=== PATIENT | male | born 1945 | race Caucasian/White ===

== ENCOUNTER → 2020-10-22 08:43 | Outpatient (BNVA) | payer OTHER, SELFPAY | PROVIDERS: PCP Physician Assistant Medical; Visit Provider Orthopaedic Surgery | DX: M79.642 Pain in left hand (principal); R20.0 Anesthesia of skin; R20.2 Paresthesia of skin | CPT/HCPCS: 99202 ==

== ENCOUNTER 2020-11-15 08:23 | Outpatient (REF) | payer OTHER, SELFPAY ==
--- NOTE | 2020-11-15 08:31 | EMG_ITS ---
Bilateral median and ulnar motor and sensory studies were performed. Bilateral radial sensory studies were performed and paraspinal muscles were tested. IMPRESSION: 1. Severe almost end-stage right, and [id number] left, median neuropathy across carpal tunnel. 2. Mild bilateral ulnar neuropathy across cubital tunnel. MD EMMETT Forbes/DALILA / [phone]
== END 2020-11-15 08:24 | disposition home or self-care (01) ==
LOC: HO.NEURO 08:23
PROVIDERS: PCP Physician Assistant Medical; Visit Provider Orthopaedic Surgery
DX: R20.0 Anesthesia of skin (principal); R20.2 Paresthesia of skin
CPT/HCPCS: 95886; 95911

== ENCOUNTER → 2020-11-22 08:39 | Outpatient (BNVA) | payer OTHER, SELFPAY | PROVIDERS: PCP Physician Assistant Medical; Visit Provider Orthopaedic Surgery | DX: G56.03 Carpal tunnel syndrome, bilateral upper limbs (principal) | CPT/HCPCS: 99212 ==

== ENCOUNTER 2020-12-18 12:31 | Day surgery (SDC) | payer OTHER, SELFPAY ==
[2020-12-18 12:46] VITALS: BMI 27.1
[2020-12-18 12:53] VITALS: BP 156/76; PULSE 84; RESP 16; TEMP 36.9; O2SAT 97
--- NOTE | 2020-12-18 15:18 | MHC.SHP ---
Pre-Procedural Eval Section B Chief Complaint: carpal tunnel Allergies: Allergies Allergy/AdvReac Type Severity Reaction Status Date / Time lisinopril Allergy Unknown Verified 12/26/19 00:00 Plan I have reviewed the history and physical and performed a pertinent physical examination on my patient. No changes have occurred unless specified.
--- NOTE | 2020-12-18 15:19 | W.PM.OPN ---
Operative Note Operative Note Date of Service: 12/18/20 Narrative: Preop diagnosis: 1. right Carpal tunnel syndrome Postop diagnosis: 1. Right Carpal tunnel syndrome Procedure: 1. Right Carpal tunnel release Surgeon: Bethanie Lewis MD Anesthesia: local block using 1% lidocaine with epinephrine Findings: Thickened transverse carpal ligament. EBL: Less than 5 mL Specimens: None Complications: None Disposition: Brought to recovery room in stable condition Plan: Follow-up for 7-10 days for wound check and suture removal Indications: The patient is 75 years old, with Right carpal tunnel syndrome that has been unresponsive to nonoperative management. The risks and benefits of operative treatment including but not limited to risk of damage to blood vessels, nerves, tendons, infection, persistent pain, persistent symptoms, or possible need for additional surgery were discussed with the patient and the patient wishes to proceed with surgery. Procedure: Once consent was obtained a local block was performed using a combination of 1% lidocaine with epinephrine. The patient was then brought back to the operating suite and placed on the operative table in supine position. A tourniquet was applied to the proximal aspect of the right upper extremity and the limb was prepped and draped in a standard surgical fashion. Once assured that we had a good block, a 1.5 cm longitudinal incision was made centered over the right carpal tunnel. The incision was made through the skin to the subcutaneous tissues using a #15 blade. Dissection was made down to the level of the transverse carpal ligament with care being taken to protect the palmar cutaneous nerve. Once the transverse carpal ligament was clearly visualized, a longitudinal incision was made in the transverse carpal ligament 1st using a #15 blade, then using tenotomy scissors under direct visualization. Care was taken to look for and protect the motor branch of the median nerve when seen in this area. Once satisfied with our carpal tunnel release the wound was copiously irrigated with normal saline and hemostasis was obtained with a brief period of local pressure. The skin edges were reapproximated with some 5.0 nylon suture material and a sterile dressing was applied. The patient appears to have tolerated the procedure well and with no complications. All digits were well vascularized at the conclusion of the case.
[2020-12-18 16:15] VITALS: BP 158/84; PULSE 94; RESP 20; TEMP 36.8; O2SAT 97
== END 2020-12-18 16:30 | disposition home or self-care (01) ==
PROVIDERS: PCP Physician Assistant Medical; Visit Provider Orthopaedic Surgery
PROC: (CPT 64721; principal; 2020-12-18 14:20)
DX: G56.01 Carpal tunnel syndrome, right upper limb (principal); I10 Essential (primary) hypertension; Z85.46 Personal history of malignant neoplasm of prostate; Z85.828 Personal history of other malignant neoplasm of skin; G47.30 Sleep apnea, unspecified; Z79.899 Other long term (current) drug therapy; Z88.8 Allergy status to other drugs, medicaments and biological substances
CPT/HCPCS: 64721

== ENCOUNTER → 2020-12-26 09:38 | Outpatient (BNVA) | payer OTHER, SELFPAY | PROVIDERS: Visit Provider Orthopaedic Surgery | DX: G56.01 Carpal tunnel syndrome, right upper limb (principal); M79.642 Pain in left hand | CPT/HCPCS: 99212 ==

== ENCOUNTER 2021-07-08 08:16 | Outpatient (REF) | payer OTHER, SELFPAY ==
--- NOTE | ~2021-07-08 | XR_ITS ---
EXAMINATION: XR BOTH KNEES AP STANDING XR RIGHT KNEE, 2 VIEWS XR LEFT KNEE, 2 VIEWS CLINICAL INFORMATION: Pain. COMPARISON: None. TECHNIQUE: Standing AP view of both knees and lateral and sunrise views of the right and left knee. FINDINGS: Right knee: Njgsdskd-[id number] medial compartment joint space narrowing with mild subchondral sclerosis. Tricompartmental marginal osteophytes. No osseous erosion. No fracture or dislocation. No significant joint effusion. No abnormal soft tissue calcification. Left knee: Moderate medial compartment joint space narrowing. Tricompartmental marginal osteophytes. No osseous erosion. No fracture or dislocation. No significant joint effusion. No abnormal soft tissue calcification. XR/XR knee RT 2V IMPRESSION: RIGHT KNEE: Severe medial as well as more mild patellofemoral and lateral compartment osteoarthritis. LEFT KNEE: Moderate medial as well as more mild patellofemoral and lateral compartment osteoarthritis.
--- NOTE | ~2021-07-08 | XR_ITS ---
EXAMINATION: XR BOTH KNEES AP STANDING XR RIGHT KNEE, 2 VIEWS XR LEFT KNEE, 2 VIEWS CLINICAL INFORMATION: Pain. COMPARISON: None. TECHNIQUE: Standing AP view of both knees and lateral and sunrise views of the right and left knee. FINDINGS: Right knee: Hfyuxefu-cp-fgwfew medial compartment joint space narrowing with mild subchondral sclerosis. Tricompartmental marginal osteophytes. No osseous erosion. No fracture or dislocation. No significant joint effusion. No abnormal soft tissue calcification. Left knee: Moderate medial compartment joint space narrowing. Tricompartmental marginal osteophytes. No osseous erosion. No fracture or dislocation. No significant joint effusion. No abnormal soft tissue calcification. XR/XR knee standing BI IMPRESSION: RIGHT KNEE: Severe medial as well as more mild patellofemoral and lateral compartment osteoarthritis. LEFT KNEE: Moderate medial as well as more mild patellofemoral and lateral compartment osteoarthritis.
--- NOTE | ~2021-07-08 | XR_ITS ---
EXAMINATION: XR BOTH KNEES AP STANDING XR RIGHT KNEE, 2 VIEWS XR LEFT KNEE, 2 VIEWS CLINICAL INFORMATION: Pain. COMPARISON: None. TECHNIQUE: Standing AP view of both knees and lateral and sunrise views of the right and left knee. FINDINGS: Right knee: Agijgkew-nh-omoope medial compartment joint space narrowing with mild subchondral sclerosis. Tricompartmental marginal osteophytes. No osseous erosion. No fracture or dislocation. No significant joint effusion. No abnormal soft tissue calcification. Left knee: Moderate medial compartment joint space narrowing. Tricompartmental marginal osteophytes. No osseous erosion. No fracture or dislocation. No significant joint effusion. No abnormal soft tissue calcification. XR/XR knee LT 2V IMPRESSION: RIGHT KNEE: Severe medial as well as more mild patellofemoral and lateral compartment osteoarthritis. LEFT KNEE: Moderate medial as well as more mild patellofemoral and lateral compartment osteoarthritis.
== END 2021-07-08 08:17 | disposition home or self-care (01) ==
LOC: HO.HOSX 08:16
PROVIDERS: Visit Provider Orthopaedic Surgery
DX: M17.0 Bilateral primary osteoarthritis of knee (principal)
CPT/HCPCS: 20610; 73560; 73565; 99202; J1100

== ENCOUNTER → 2021-10-17 08:12 | Outpatient (BNVA) | payer OTHER, SELFPAY | PROVIDERS: PCP Physician Assistant Medical; Visit Provider Orthopaedic Surgery | DX: M17.0 Bilateral primary osteoarthritis of knee (principal) | CPT/HCPCS: 99212 ==

== ENCOUNTER → 2021-12-17 09:50 | Outpatient (BNVA) | payer OTHER, SELFPAY | PROVIDERS: PCP Physician Assistant Medical; Visit Provider Orthopaedic Surgery ==

== ENCOUNTER 2022-01-07 | Outpatient (REF) | payer OTHER, SELFPAY ==
[2022-01-07 12:01] VITALS: BP 174/83; PULSE 93; RESP 16; O2SAT 96; BMI 27.8
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
[2022-01-07 14:32] LABS: MRSA Nasal PCR NEGATIVE (Negative); SA Nasal PCR NEGATIVE (Negative)
== END 2022-01-07 00:01 ==
LOC: HO.PAT
PROVIDERS: Physician Assistant; PCP Physician Assistant Medical; Visit Provider Orthopaedic Surgery
DX: Z01.818 Encounter for other preprocedural examination (principal); M19.90 Unspecified osteoarthritis, unspecified site
CPT/HCPCS: 86850; 86900; 86901; 87640; 87641

== ENCOUNTER → 2022-01-16 09:28 | Outpatient (BNVA) | payer OTHER, SELFPAY | PROVIDERS: PCP Physician Assistant Medical; Visit Provider Physician Assistant | DX: M17.12 Unilateral primary osteoarthritis, left knee (principal) | CPT/HCPCS: 99212 ==

== ENCOUNTER → 2022-01-20 14:02 | Outpatient (BNVA) | payer OTHER, SELFPAY | PROVIDERS: PCP Physician Assistant Medical; Visit Provider Internal Medicine | DX: Z01.810 Encounter for preprocedural cardiovascular examination (principal); I10 Essential (primary) hypertension; R94.31 Abnormal electrocardiogram [ECG] [EKG] | CPT/HCPCS: 93005; 99202 ==

== ENCOUNTER → 2022-02-10 07:07 | Outpatient (REF) | payer OTHER, SELFPAY ==
--- NOTE | ~2022-02-10 | NM_ITS ---
Myocardial perfusion study Indication: Preoperative cardiovascular evaluation to evaluate for myocardial ischemia Technique: The patient was brought in for a Lexiscan perfusion study on 02/10/2022. Patient performed low-level exercise and was injected 0.4 mg of Lexiscan intravenously. Within a minute of injection, 30 mCi of sestamibi was given intravenously. Images were obtained using the SPECT gamma camera interlaced with the gating device. Images were obtained in supine position. Resting perfusion study was performed on 02/11/2022. Patient was administered 30 mCi of sestamibi intravenously at rest. Images were then obtained in supine position. Images obtained with and without CT attenuation. Total DLP 89 mGy-cm Images were processed with the software and compared side to side in short axis, horizontal long axis and vertical long axis views. Findings: The stress perfusion study showed non attenuated images show mildly reduced uptake mid and basal inferior wall of the LV myocardium. Remainder of the LV myocardium is normally perfused. Attenuation corrected images show minimally reduced uptake in the inferoapical wall of the LV myocardium.. The gated study shows normal LV systolic function with calculated LVEF of 73%. LV cavity is normal in size. The gated study shows normal systolic wall thickening and contraction of segments. Resting study shows no change in perfusion pattern compared to stress perfusion study. Gating at rest reveals normal systolic wall motion with ejection fraction at 69%. The findings are consistent with normal myocardial perfusion. NM/NM cardiolite stress test Impression: 1. Myocardial perfusion imaging study shows normal myocardial perfusion 2. Gated LVEF is 69% 3. Transient ischemic dilatation not present EKG is nondiagnostic for ischemia
--- NOTE | 2022-02-10 07:10 | CA_ITS ---
Transthoracic Echocardiogram Patient (Last, First, Middle): Dain Sandy, Gender: Male Date of : 1945 Age: 76 Procedure Date: 02/10/2022 Procedure Type: Transthoracic Echocardiogram Location: OP Height: 180.34 cm Weight: 90.72 kg BSA: 2.11 m2 Heart Rate: bpm BP: 148 / 60 mmHg Regional Director Of Finance: SB Referring MD: Denis Salazar MD Symptoms: Z01.810 - Encounter for preprocedural cardiovascular exam... Study Quality: Adequate ECG Rhythm: Sinus Conclusions: - The left ventricular systolic function is hyperdynamic. The calculated ejection fraction is 73% by biplane method. - There is mild calcification of the aortic valve. There is mild thickening of the aortic valve. Findings Left Ventricle Normal left ventricular cavity size. The left ventricular systolic function is hyperdynamic. The calculated ejection fraction is 73% by biplane method. There is no evidence of regional wall motion abnormalities. Evidence suggests grade I (mild) diastolic dysfunction. There is moderate septal asymmetric hypertrophy. LV peak GLS -19.1%. Right Ventricle Normal right ventricular cavity size and systolic function. Atria The left atrium is mildly dilated. The right atrium is normal in size. Aortic Valve There is mild calcification of the aortic valve. There is mild thickening of the aortic valve. There is no aortic valve stenosis. There is no aortic valve regurgitation. Mitral Valve There is mild anterior mitral leaflet thickening. There is trace mitral valve regurgitation. There is no mitral valve stenosis. Pulmonic Valve The pulmonic valve was not well visualized. Tricuspid Valve Normal tricuspid valve structure. There is trace tricuspid valve regurgitation. The pulmonary artery systolic pressure is normal. Great Vessels The asc aorta is normal in size. Venous The inferior vena cava is normal in size and collapses greater than 50% with inspiration. Pericardium/Pleural There is no evidence of pericardial effusion. Prior Study Comparison No prior study available for comparison. Measurements 2D Linear Measurements IVSd: 1.62 0.6-0.9/0.6-1.0 cm LVIDd: 4.70 3.9-5.3/4.2-5.9 cm LVIDd Index: 2.23 2.4-3.2/2.2-3.1 cm/m2 LVIDs: 2.61 2.0-3.6 cm LVPWd: 0.79 0.7-1.1 cm LA Diam: 4.30 2.7-3.8/3.0-4.0 cm LAIDs Index: 2.04 1.5-2.3 cm/m2 LV Mass: 265.20 67-162/88-224 g LV Mass Index: 125.69 43-95/49-115 g/m2 LVOT Diam: 2.40 3.0+(-)1.3 cm 2D Systolic Function EF 4C: 70.80 >55% EF 2C: 75.60 >55% EF BiP: 73.40 >55% Mitral Valve MV Pk E: 0.64 MV PK A: 1.17 MV Decel Time: 238.00 E/A: 0.50 E'Lateral: 5.00 E'Medial: 6.53 E/E' Med: 9.80 E/E' Lat: 12.90 PHT: 70.00 MVA PHT: 3.14 Decel [place]: 2.70 Aortic Valve AoV Pk Mike: 1.90 AoV Mn Mike: 1.16 AoV VTI: 0.33 AoV Pk Grad: 14.00 Aov Mn Grad: 7.00 JESÚS Cont.VTI: 3.20 LVOT LVOT Pk Mike: 1.12 LVOT Mn Mike: 0.77 LVOT VTI: 0.24 LVOT Pk Grad: 5.00 LVOT Mn Grad: 3.00 LVOT Diam: 2.40 LVOT Area: 4.52 Diastolic Function MV Pk E: 0.64 MV Pk A: 1.17 E/A: 0.50 E'Medial: 6.53 E/E' Med: 9.80 E' Laterial: 5.00 E/E' Lat: 12.90 Right Ventricle TAPSE (mm): 25.00 TVS' Mike: 11.20 Tricuspid Valve TR Pk Mike: 2.80 TR Pk Grad: 31.00 RA Press: 3.00 RVSP: 34.00 Great Vessels Aorta Sinus of Valsalva: 3.29 2.0-3.[address] [place]: 3.00 1.7-3.4 cm Ao Asc: 3.30 2.1-3.4 cm Pulmonary Valve PV Pk Mike: 0.94 Peak PV Grad: 4.00 Updated in Other Vendor System with Status of Final Denis Salazar MD electronically signed on 02/10/2022 11:30:22 AM with status of Final
--- NOTE | 2022-02-10 07:10 | CA_ITS ---
Acquisition Time: 2022-02-10 10:16:05 Total Exercise Time: 00:02:00 Test Indications: PREOP Medications: AMLODIPINE HCTZ Protocol: LEXISCAN Max HR: 098 BPM 68% of Pred: 144 BPM Max BP: 144/080 mmHG Max Work Load: 1.0 METS Pharmacological stress test with Lexiscan injection, while sitting and kicking his legs, without anginal symptoms, without arrythmia, with normotensive response to injection, with nondiagnostic EKG for ischemia. Nuclear images pending. Test reviewed with Dr Salazar. Referred By: Denis Salazar Overread By: SARAHI CORNEJO
== END ==
LOC: HO.CARD 07:07
PROVIDERS: PCP Physician Assistant Medical; Visit Provider Internal Medicine
DX: Z01.810 Encounter for preprocedural cardiovascular examination (principal)
CPT/HCPCS: 78452; 93017; 93306; 93356; A9500; J0280; J2785

== ENCOUNTER → 2022-02-19 09:07 | Outpatient (BNVA) | payer OTHER, SELFPAY | PROVIDERS: PCP Physician Assistant Medical; Visit Provider Internal Medicine | DX: Z01.810 Encounter for preprocedural cardiovascular examination (principal); I10 Essential (primary) hypertension; R94.31 Abnormal electrocardiogram [ECG] [EKG] | CPT/HCPCS: 99212 ==

== ENCOUNTER → 2022-03-20 12:59 | Outpatient (BNVA) | payer OTHER, SELFPAY | PROVIDERS: PCP Physician Assistant Medical; Visit Provider Physician Assistant | DX: Z01.818 Encounter for other preprocedural examination (principal); M17.12 Unilateral primary osteoarthritis, left knee | CPT/HCPCS: 99212 ==

== ENCOUNTER 2022-03-25 11:35 | Inpatient (IN) | payer OTHER, SELFPAY ==
[2022-03-11 15:49] VITALS: BMI 27.1
[2022-03-12 14:20] VITALS: BP 171/78; PULSE 84; RESP 16; O2SAT 98
[2022-03-12 14:29] LABS: Hematocrit 40.8 % (42.0-52.0); Hemoglobin 13.1 g/dl (14.0-18.0); Mean Corpuscular HGB Conc 32.1 g/dl (31.0-36.0); Mean Corpuscular Hemoglobin 29.6 pg (27.0-33.0); Mean Corpuscular Volume 92.3 fL (80.0-98.0); Mean Platelet Volume 11.5 fL (9.4-12.4); Platelet Count 313 X10*3/uL (160-400); Red Blood Count 4.42 X10*6/uL (4.60-5.80); Red Cell Distribution Width 15.1 % (11.0-16.0); White Blood Count 6.2 X10*3/uL (4.8-10.8)
[2022-03-12 16:13] LABS: MRSA Nasal PCR NEGATIVE (Negative); SA Nasal PCR NEGATIVE (Negative)
[2022-03-12 16:40] LABS: Anion Gap 15 (12-20); Blood Urea Nitrogen 28 mg/dL (9-16); Calcium 10.2 mg/dL (8.4-10.2); Carbon Dioxide 25 mmol/L (22-29); Chloride 109 mmol/L (96-108); Creatinine Clr Calc Pharmacy 48.8; Estimated Glomerular Filt Rate 50; Glucose Random 82 mg/dL (60-115); Potassium 4.8 mmol/L (3.3-5.1); Sodium 144 mmol/L (135-145)
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
[2022-03-25] VITALS (12 sets, daily range): BP systolic 112–158; BP diastolic 54–79; PULSE 82–96; RESP 14–18; TEMP 36.5–37; O2SAT 93–97
--- NOTE | ~2022-03-25 | XR_ITS ---
EXAMINATION: XR KNEE, LEFT CLINICAL INFORMATION: Left total knee arthroplasty COMPARISON: 07/08/2021 TECHNIQUE: Two views of the left knee. FINDINGS: Total left knee arthroplasty. The femoral component articulates appropriately with the tibial plateau and patellar components. No periprosthetic lucency or fracture. Postoperative soft tissue gas and joint space gas. Anterior skin ananya. XR/XR knee LT 2V IMPRESSION: Total left knee arthroplasty in typical positioning and alignment.
[2022-03-25] MEDS: Lactated Ringers 1,000 ML 100 ML IVCONT ×2 (12:22→16:13)
[2022-03-25 12:40] LABS: COVID-19 Test Negative (Negative); IDNOW Serial# 16C4AD1C
[2022-03-25 12:43] LABS: Hemoglobin 12.6 g/dl (14.0-18.0)
--- NOTE | 2022-03-25 13:25 | MHC.SHP ---
Pre-Procedural Eval Section A Date of Service: 03/25/22 The patient is an INPATIENT: No Changes since office visit: Yes Patient answered all questions; No Cold of Flu in the past 2 weeks, No New Medical Problems and No Changes in Medication The History & Physical has been completed within 30 days and I have reviewed it.: Yes Section B Chief Complaint: LT TKA Allergies: Allergies Allergy/AdvReac Type Severity Reaction Status Date / Time gabapentin Allergy Intermediate Rash Verified 02/19/22 09:21 lisinopril Allergy Unknown Cough Verified 02/19/22 09:21 Plan I have reviewed the history and physical and performed a pertinent physical examination on my patient. No changes have occurred unless specified.
--- NOTE | 2022-03-25 13:40 | PHA.MEDREC ---
Pharmacy Consult ? Medication Reconciliation Pharmacy has reviewed the medication reconciliation competed by nursing. [facility] Chloe CraigD
--- NOTE | 2022-03-25 15:13 | PM.OP ---
Brief Operative Note Date of Service: 03/25/22 Pre-op diagnosis: Left knee OA Post-op diagnosis: same Procedure: Left TKA Implants: [place] Triathalon cruciate retaining press fit Surgeon: Andrea Mcgrath MD Anesthesia: regional and spinal Was an Administrative Assistant Receptionist used for this Procedure?: Yes Administrative Assistant Receptionist: Jan Li Estimated blood loss (mL): 150 IV fluids (mL): 1,000 Pathology: other Condition: stable Disposition: PACU
--- NOTE | 2022-03-25 15:19 | P.OP_ITS ---
Operative Note Operative Note Date of Service: 03/25/22 Narrative: Date of Service: 03/25/22 Pre-op diagnosis: Left knee OA Post-op diagnosis: same Procedure: Left TKA Implants: [place] Triathalon cruciate retaining press fit Surgeon: Andrea Mcgrath MD Anesthesia: regional and spinal Was an Maintenance Painter used for this Procedure?: Yes Maintenance Painter: Jan Li Estimated blood loss (mL): 150 IV fluids (mL): 1,000 Pathology: other Condition: stable Disposition: PACU Procedure in detail: The patient was brought to the operating room and prepped and draped in standard sterile fashion. A time-out was called to identify proper site proper procedure proper surgeon and IV antibiotics were administered. 1 g of IV tranexamic acid was administered. I began by making a midline incision to the retinaculum and performed a medial parapatellar arthrotomy. The patella was translated laterally and the knee was flexed up. The medial femoral condyle was deformed with a large central osteochondral defect.. I performed a small medial peel and resected the infrapatellar fat pad. Eveline's line was then used to drill my intramedullary femoral guide and my distal femur cut of 10 mm was made in 5 degrees of valgus while protecting the soft tissues. I then measured a #5 femur and placed my cutting guide and made my anterior posterior and chamfer cuts protecting the soft tissues at all times. Once I was satisfied with my cuts I turned my attention to the tibia. I removed the meniscus medially and laterally and , using an external cutting guide, in line with the tibial crest and the third ray, I made my distal tibial cut in 3 deg slope of while protecting the PCL the posterior soft tissues at all times. An extension block was used to confirm appropriate amount of bony resection. I then sized a #6 tibia and once I was satisfied that there was complete tibial coverage I placed my trial and with the trial femur in place took the knee through range of motion. I was satisfied with the extension and flexion as well as the stability at 0, 30 and 90 degrees. I then turned my attention to the patella where I removed 1 cm from the undersurface of the patella and then trialed a 38a patellar button. Again the knee was taken through range of motion I was satisfied with the tracking. I then returned to the femur and drilled my femoral lug holes and prepared the tibia. A femoral bone plug was placed and the knee was irrigated copiously. I then press fit the patella, tibia and femur in standard fashion. I trialed different inserts until I selected a #9 insert. The final insert was placed and a 3 minutes iodine soak with local TXA was performed. A Werewolf cautery wand was used to maintain hemostasis over the capsule and meniscal beds, the gutters and peripatellar soft tissues. The knee was then closed with a running Quill suture, a 3 0 Vicryl and ananya on the skin. Patient was then placed in sterile dressing and brought to recovery room in stable condition there were no known complications.
[2022-03-25] MEDS: oxyCODONE HCl Immed Release 5 MG TABLET PO (16:52)
[2022-03-25] MEDS: Acetaminophen 325 MG TABLET 650 MG PO (16:52)
[2022-03-25] MEDS: Docusate Sodium 100 MG CAPSULE PO (19:31)
[2022-03-25] MEDS: Celecoxib 200 MG CAPSULE PO (19:31)
[2022-03-25] MEDS: 0.9 % Sodium Chloride Flush 3 ML SYRINGE IVFLUSH ×2 (19:32→19:46)
[2022-03-25] MEDS: HYDROmorphone HCl 1 MG/ML SYRINGE 0.25 MG IVPUSH (19:37)
[2022-03-26] VITALS (8 sets, daily range): BP systolic 134–148; BP diastolic 58–69; PULSE 82–95; RESP 16–18; TEMP 36.2–36.7; O2SAT 92–98
[2022-03-26] MEDS: Lactated Ringers 1,000 ML 100 ML IVCONT ×2 (01:20→13:31)
[2022-03-26 04:01] LABS: Basophils Percent Auto 0.1 % (0-2); Hematocrit 37.2 % (42.0-52.0); Hemoglobin 12.2 g/dl (14.0-18.0); Imm Gran Abs Auto 0.13 X10*3/uL (0.00-0.03); Imm Gran Pct Auto 0.7 % (0.0-0.4); Lymphocytes Absolute Auto 0.6 X10*3/uL (1.2-4.9); Lymphocytes Percent Auto 3.6 % (20-40); MANUAL DIFF FLAG SCAN; Mean Corpuscular HGB Conc 32.8 g/dl (31.0-36.0); Mean Corpuscular Hemoglobin 29.8 pg (27.0-33.0); Mean Platelet Volume 11.4 fL (9.4-12.4); Monocytes Absolute Auto 3.4 X10*3/uL (0.1-1.2); Monocytes Percent Auto 18.9 % (2-11); Neutrophils Absolute Auto 13.8 x10*3/uL (2.0-8.3); Neutrophils Percent Auto 76.7 % (45-73); Platelet Count 308 X10*3/uL (160-400); Red Blood Count 4.09 X10*6/uL (4.60-5.80); Red Cell Distribution Width 14.6 % (11.0-16.0); SCAN SMEAR FLAG 1
[2022-03-26] MEDS: oxyCODONE HCl Immed Release 5 MG TABLET PO ×4 (06:34→20:14)
[2022-03-26 06:35] LABS: SLIDE REVIEW VERIFIED
[2022-03-26 06:51] LABS: Anion Gap 12 (12-20); Blood Urea Nitrogen 24 mg/dL (9-16); Calcium 8.4 mg/dL (8.4-10.2); Carbon Dioxide 23 mmol/L (22-29); Chloride 107 mmol/L (96-108); Creatinine Clr Calc Pharmacy 52.2; Estimated Glomerular Filt Rate 54; Glucose Fasting 238 mg/dL (60-99); Potassium 4.2 mmol/L (3.3-5.1); Sodium 138 mmol/L (135-145)
[2022-03-26] MEDS: Celecoxib 200 MG CAPSULE PO ×2 (07:38→20:14)
[2022-03-26] MEDS: Docusate Sodium 100 MG CAPSULE PO ×2 (07:39→20:14)
--- NOTE | 2022-03-26 07:58 | PM.PNORT ---
Subjective Subjective Date of Service: 03/26/22 Interval history: POD1 s/p LTKA. Patient is resting in bed comfortably. Pain is well managed. No overnight events. No additional complaints. Physical Exam Vital Signs: Vital Signs: Last Vital Signs Temp 98.1 F 03/26/22 03:26 Pulse 90 03/26/22 03:26 Resp 18 03/26/22 03:26 BP 143/58 H 03/26/22 03:26 Pulse Ox 98 03/26/22 03:26 O2 Del Method 03/26/22 03:26 O2 Flow Rate 2.5 03/26/22 03:26 BMI result Body Mass Index 27.1 Const: General: cooperative, healthy appearing and no acute distress Resp: Effort & Inspection: normal respiratory effort and able to speak in complete sentences Cardio: Rate: regular rate Peripheral pulses: Peripheral pulses 2+ throughout GI: Palpation (GI): Soft to palpation Skin: Lesions: no lesions Rashes: no rashes Extrem: Other: Lt knee Aquacel is clean, dry, and intact. Able to dorsiflex and plantarflex. NVI. Procedures Date of Service Date of Service: 03/26/22 Progress Note: A&P Assessment and plan (1) Status post total left knee replacement: Status: Acute Plan Continue pain mgmnt Begin lovenox for dvt ppx begin PT for LTKA Dispo planning-Pending PT eval, pain mgmnt Time Spent With Patient Time: Total time spent is greater than 50% in coordination of care (as documented) at patient's floor/unit and/or counseling patient: Quality Stroke Does the patient have a stroke diagnosis?: No VTE Prior VTE?: No VTE Risk Level:: Surgical - very high VTE Device Contraindication: N/A - Device Ordered VTE Drug Contraindication: N/A - Med Ordered
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
[2022-03-26] MEDS: Enoxaparin Sodium 40 MG/0.4 ML SYRINGE SUBCUT (10:28)
--- NOTE | 2022-03-26 11:23 | HO.POSTANES ---
Post Anesthesia Evaluation Post Anesthesia Evaluation Vital Signs: Vital Signs Temp Pulse Resp BP Pulse Ox O2 Del Method O2 Flow Rate 03/26/22 08:00 98.1 F 91 17 148/66 H 97 Nasal Cannula 3 03/26/22 08:29 91 148/66 H 97 03/26/22 03:26 98.1 F 90 18 143/58 H 98 Nasal Cannula 2.5 Anesthesia: Nerve Block and General Mental Status: Awake Pain Control: Satisfactory Nausea/Vomiting: None Hydration: Adequate Anesthesia-Related Issues: No Anes. Related Issues
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
[2022-03-26] MEDS: clonazePAM 0.5 MG TABLET PO (20:14)
[2022-03-27] MEDS: Lactated Ringers 1,000 ML 100 ML IVCONT (01:51)
[2022-03-27 03:28] VITALS: BP 136/65; PULSE 75; RESP 16; TEMP 36.2; O2SAT 96
[2022-03-27 06:22] LABS: Basophils Percent Auto 0.1 % (0-2); Hematocrit 32.6 % (42.0-52.0); Hemoglobin 10.4 g/dl (14.0-18.0); Imm Gran Abs Auto 0.05 X10*3/uL (0.00-0.03); Imm Gran Pct Auto 0.4 % (0.0-0.4); Lymphocytes Percent Auto 7.1 % (20-40); MANUAL DIFF FLAG SCAN; Mean Corpuscular HGB Conc 31.9 g/dl (31.0-36.0); Mean Corpuscular Hemoglobin 29.5 pg (27.0-33.0); Mean Corpuscular Volume 92.6 fL (80.0-98.0); Monocytes Absolute Auto 5.1 X10*3/uL (0.1-1.2); Monocytes Percent Auto 36.9 % (2-11); Neutrophils Absolute Auto 7.6 x10*3/uL (2.0-8.3); Neutrophils Percent Auto 55.5 % (45-73); Platelet Count 241 X10*3/uL (160-400); Red Blood Count 3.52 X10*6/uL (4.60-5.80); Red Cell Distribution Width 15.2 % (11.0-16.0); SCAN SMEAR FLAG 1; White Blood Count 13.7 X10*3/uL (4.8-10.8)
[2022-03-27 06:38] LABS: Anion Gap 7 (12-20); Blood Urea Nitrogen 18 mg/dL (9-16); Carbon Dioxide 28 mmol/L (22-29); Chloride 109 mmol/L (96-108); Creatinine Clr Calc Pharmacy 63.4; Estimated Glomerular Filt Rate > 60; Glucose Fasting 102 mg/dL (60-99); Potassium 3.8 mmol/L (3.3-5.1); Sodium 140 mmol/L (135-145)
[2022-03-27] MEDS: oxyCODONE HCl Immed Release 5 MG TABLET PO ×2 (06:38→10:41)
[2022-03-27 06:49] LABS: SLIDE REVIEW VERIFIED
[2022-03-27 07:18] VITALS: BP 151/69; PULSE 83; RESP 17; TEMP 36.8; O2SAT 96
[2022-03-27 07:56] VITALS: BP 151/69; PULSE 83; O2SAT 96
[2022-03-27 08:00] VITALS: RESP 20
--- NOTE | 2022-03-27 08:33 | P.DS_ITS ---
DS: Providers Provider Date of Service: 03/27/22 Date of admission: 03/25/22 11:35 Primary care physician: EILEEN Anderson Consults: 03/25/22 17:20 Consult to Hospitalist Routine Consulting Provider: Hospitalist Reason For Exam: medical management DS: Diagnosis Discharge Diagnosis (1) Status post total left knee replacement: Status: Acute DS: Summary Hospital Course Hospital Course: The patient underwent a successful left total knee arthroplasty, was transferred to PACU and then to the floor to recover. During their stay, their vitals were stable, afebrile at 98.3. Labs were unremarkable, H/H10.4/32.6 . POD 1 he was started on Lovenox for DVT ppx, they also received services twice a day. Prior to discharge, their dressing was change, incision clean dry and intact, new Aquacel dressing applied and the plan was to be discharged home with [facility]NA Time Spent with Patient Time attestation: Total time spent providing and/or coordinating discharge services: Discharge coordination time: Less than 30 minutes Quality: Safe Use of Opioids Does Pt have an Active Cancer Diagnosis on the Problem List?: No Quality: Stroke Does the patient have a stroke diagnosis?: No Physical Exam Vital Signs: Vital Signs: Last Vital Signs Temp 98.3 F 03/27/22 07:18 Pulse 83 03/27/22 07:56 Resp 20 03/27/22 08:00 BP 151/69 H 03/27/22 07:56 Pulse Ox 96 03/27/22 07:56 O2 Del Method 03/27/22 07:18 O2 Flow Rate 3 03/26/22 08:00 BMI result Body Mass Index 27.1 Const: General: cooperative, healthy appearing and no acute distress Resp: Effort & Inspection: normal respiratory effort and able to speak in complete sentences Cardio: Rate: regular rate Peripheral pulses: Peripheral pulses 2+ throughout GI: Palpation (GI): Soft to palpation Skin: General skin exam: no rashes or lesions noted Extrem: Other: incision clean dry and intact. [place] intact. No erythema or joint effusion. Calf supple nontender. Neurovascularly intact. DS: Data Data Completed and Pending Pending studies at discharge: Pending at discharge 03/25/22 15:02 Surgical [PTH] Routine Labs on day of discharge: Laboratory Results - last 24 hr 03/27/22 03/27/22 06:06 06:06 WBC 13.7 H RBC 3.52 L Hgb 10.4 L Hct 32.6 L MCV 92.6 MCH 29.5 MCHC 31.9 RDW 15.2 Plt Count 241 MPV 11.0 Immature Gran % (Auto) 0.4 Neut % (Auto) 55.5 Lymph % (Auto) 7.1 L Snyder % (Auto) 36.9 H Eos % (Auto) 0.0 Baso % (Auto) 0.1 Lymph # (Auto) 1.0 L Snyder # (Auto) 5.1 H Eos # (Auto) 0.0 Baso # (Auto) 0.0 Abs Immat Gran (auto) 0.05 H Absolute Neuts (auto) 7.6 Absolute Nucleated RBC 0.000 Nucleated RBC % (auto) 0.0 Smear Tech's Comments VERIFIED Sodium 140 Potassium 3.8 Chloride 109 H Carbon Dioxide 28 Anion Gap 7 L BUN 18 H Creatinine 1.07 Estim Creat Clear Calc 63.4 Estimated GFR > 60 Fasting Glucose 102 H D Calcium 8.0 L Discharge Plan Discharge Patient Disposition: Home Health Service Discharge Diagnosis: s/p lt tka Referrals: Jan Li PA-C [Physician High Frequency Mill Operator] - 2 Weeks (04/10/22 1:30 [facility] Jan Li PA-C) Discharge Medications: New celecoxib 200 mg Capsule 200 mg PO BID 30 Days Qty: 60 0RF acetaminophen 325 mg Tablet 650 mg PO Q6H PRN (Reason: Pain, Mild (Pain Scale 1-3)) 30 Days Qty: 240 0RF docusate sodium 100 mg Capsule 100 mg PO BID 14 Days Qty: 28 0RF oxycodone 5 mg Tablet 5 mg PO Q4H PRN (Reason: Pain, Moderate (Pain Scale 4-6) 7 Days Qty: 42 0RF Rx Instructions: Partial Fill upon patient request. aspirin 325 mg tablet 325 mg PO BID 42 Days Qty: 84 0RF Continued duloxetine 60 mg Capsule,Delayed Release(Dr/Ec) 60 mg PO DAILY amlodipine 5 mg tablet 10 mg PO DAILY clonazepam 0.5 mg tablet 0.5 mg PO BID Rx Instructions: administer 30 minutes before bedtime hydrochlorothiazide 25 mg tablet 12.5 mg PO DAILY Discharge Orders: Discharge Order (Routine); Ordered 03/27/22 Ordered By: Jan Li Diet: regular diet Activity on Discharge: Use cane or walker Stand Alone Forms: Patient Portal Discharge page Care Plan Goals: Restore function of joint Health Concerns: none Plan of Treatment: Physical Therapy Pain management DVT prophylaxis Assessment: Physical Therapy for Total knee arthroplasty: WBAT, gait training, ROM 0-12, quad strength * Limit stair climbing * No showering, no tub bath-keep dressing clean, dry and intact * No driving x6 weeks * Continue Aspirin twice a day x 6 weeks * Follow up with [facility] in 2 weeks: * --you will also have your first out patient PT eval on the day of your post op appt-so please plan on being in the office that day for an extended period of time.
--- NOTE | 2022-03-27 08:35 | P.F2F_ITS ---
Service Date Service Date: 03/27/22 Encounter Date of encounter: 03/27/22 Reasons for Services Signs and symptoms assessed: left knee pain, weakness, unable to drive. poor balance Reason for physical therapy: home safety and mobility, therapeutic exercises, restore joint function, gait/transfer training, ADL training and energy conservation Reason for occupational therapy: home safety and mobility, therapeutic exercises, restore joint function, gait/transfer training, ADL training and energy conservation MD Overseeing Care: Andrea Mcgrath Homebound: Leaving the home is medically contraindicated at this time without the asist of a device and/or another person due th the listed conditions above and below. Reason homebound: unsteady gait / fall risk, pain with ambulation, poor balance / fall risk and unable to drive Homebound supporting statement: Pt. is considered home bound due to recent surgery. Unable to drive, poor balance, poor gait mechanics. Certification: Based on the above findings, I certify that this patient is confined to the home and needs intermittent prison care, physical therapy and/or speech therapy, or continues to need occupational therapy. The patient is under my care, and I have initiated the establishment of the plan of care. The patient will be followed by a physician who will periodically review the plan of care.
--- NOTE | 2022-03-27 08:37 | MHC.CM.PN ---
PT MEDICALLY CLEARED FOR D/C HOME W/[facility], PT WILL ARRANGE FAMILY FOR TRANSPORT
[2022-03-27] MEDS: clonazePAM 0.5 MG TABLET PO (09:26)
[2022-03-27] MEDS: Celecoxib 200 MG CAPSULE PO (09:26)
[2022-03-27] MEDS: DULoxetine HCl 60 MG CAPSULE.DR PO (09:26)
[2022-03-27] MEDS: amLODIPine Besylate 10 MG TABLET PO (09:26)
[2022-03-27] MEDS: Docusate Sodium 100 MG CAPSULE PO (09:26)
--- NOTE | 2022-03-27 09:34 | MHC.CM.PN ---
NURSE TUBE DEPATCHER NOTE ELECTRONIC MEDICAL RECORD REVIEWED
--- NOTE | 2022-03-27 09:37 | MHC.CM.PN ---
NURSE HAT BLOCK BENCH HAND NOTE ELECTRONIC MEDICAL RECORD REVIEWED ALONG WITH CASE DISUCSSED WITH THE STAFF NURSE AND MET WITH PATIENT HE HAS S/P L-TKA ON 03/25/22 AND WILL BE DISCHARGED HOME TODAY , AND IS AWAREOF THIS HDISCHARGE PLAN HOME WITH NEW REFERRAL TO THE [facility] FOR A FEW NURISNG VISISITS FOR DIAGNOSIS SIGN SYMPTOM MANGEMENT AND PAIN ASSESSMENT AND MEDICATION RECONCILATION AND HOME PHYSICAL THERAPY. CONFIRMED WITH [facility], PCP DR JIE BAEZ TO CALL FOR POST HOSPITAL DISCHAGRE FOLLOW UP ORTHOPEDIC ASURGCIAL FOLLOW UP PER DISCHARGE INSTRUCTIONS TRANSPORTATION FAMILY PATIENT USES THE ID PHARMACY BUT TODAY POST OP HE WILL USE THE [facility] [place] I CALLED PHARMACY [phone] FOR THE ALCARAZ OF THE NARCOTIC OXYCODONE 5 MG QY HRS PRN COST FOR THE AMOUNT IS $33.79 ALSO THE PHARMACIST WILL CALL HIM FOR THE TOATL AMOUNT ONF PAYEMENT COST
== END 2022-03-27 10:49 | disposition home health service (06) | DRG 470 ==
LOC: HO.SSSA 12:13 → HO.S3 15:53
PROVIDERS: Nurse Practitioner; Physician Assistant; Admitting Provider Orthopaedic Surgery; PCP Physician Assistant Medical; Visit Provider Orthopaedic Surgery
PROC: 0SRD0JA Replacement of Left Knee Joint with Synthetic Substitute, Uncemented, Open Approach (ICD-10-PCS; CPT 27447; principal; 2022-03-25 13:30)
DX: M17.12 Unilateral primary osteoarthritis, left knee (principal); F41.9 Anxiety disorder, unspecified; F43.10 Post-traumatic stress disorder, unspecified; I10 Essential (primary) hypertension; Z85.828 Personal history of other malignant neoplasm of skin; Z20.822 Contact with and (suspected) exposure to COVID-19; Z85.46 Personal history of malignant neoplasm of prostate; Z94.7 Corneal transplant status; Z87.891 Personal history of nicotine dependence; Z88.8 Allergy status to other drugs, medicaments and biological substances; Z79.899 Other long term (current) drug therapy
CPT/HCPCS: 36415; 73560; 80048; 85014; 85018; 85025; 85027; 86850; 86900; 86901; 87635; 87640; 87641; 88305; 88311; 97110; 97116; 97162; C1776; J0690; J1100; J1170; J1650; J2250; J2405; J2795; J3010

== ENCOUNTER 2022-05-29 10:00 | Outpatient (RCR) | payer MEDICARE, SELFPAY ==
--- NOTE | 2022-04-14 18:08 | MHC.PT.EP ---
[facility] [place] Office [place] Office [place] Office [address] Yadira Rangel [address] [phone] F: [phone] F: [phone] F: [phone] F: [phone] Physical Therapy Plan of Care Date of Evaluation: Date of Surgery: 03/25/22 Diagnosis: Presence of left artificial knee joint Assessment: Pt is a pleasant and motivated 77yo M who presents to PT s/p L TKA 03/25/[address] Mcgrath. He presents to PT with current impairments in pain, decreased L knee ROM, decreased quad strength, decreased balance, and impaired gait. He is limited functionally by prolonged standing/walking, kneeling, and stair navigation. He is an excellent candidate for skilled PT in order to address current impairments to facilitate return to PLOF. He will be seen 2x/week for 4 weeks and will be reassessed at that time. Frequency and Duration: The patient will be seen 2x/week for 4 weeks Short Term Goals: Pt will be I with HEP to promote self management of symptoms Pt will achieve 115 deg L knee flexion Alf Goals: Pt will demonstrate full ROM and strength throughout L LE to assist with standing functional tasks Pt will ambulate for 30 min without AD with improved gait mechanics and minimal to no pain throughout L LE Pt will demonstrate improvements in functional mobility as evidenced by statistically significant improvement in LEFI outcome measure Treatment Plan: Modalities to reduce pain, spasms and effusion. Manual therapy to restore motion and function. Therapeutic exercise to improve strength and flexibility. Neuromuscular re-education for posture and balance. Therapeutic activities to return to functional activities of daily living. Electronically signed by: Megan Gautam, PT, DPT Please sign and return to therapist. Thank you for your referral.
--- NOTE | 2022-05-29 12:52 | MHC.PT.DC ---
[facility] [place] Office [place] Office [place] Office [address] Yadira Rangel [address] [facility] [phone] F: [phone] F: [phone] F: [phone] F: [phone] Physical Therapy Discharge Report Diagnosis: Presence of left artificial knee joint Date of Surgery: 03/25/22 Date of Evaluation: 04/14/22 Date of Discharge: 05/29/22 Treatments to Date: 8 Cancellations to Date: No Shows to Date: Discharge Status: Achieved Goals Improved Function Independent with HEP Discharge Summary: Dain has been an active participant in his therapy and is in agreement with DC at this time as he has met his therapeutic goals and is I with his home program. ROM 0-132. Electronically signed by: Ayaz Zurita PT. Please sign and return to therapist. Thank you for your referral.
== END 2022-05-29 12:52 | disposition home or self-care (01) ==
LOC: HO.PTCHIC 10:00
PROVIDERS: Visit Provider Physician Assistant
DX: Z96.652 Presence of left artificial knee joint (principal)
CPT/HCPCS: 97110; 97140; 97150; 97162; 97530

== ENCOUNTER 2022-06-19 12:18 | Outpatient (REF) | payer MEDICARE, SELFPAY ==
--- NOTE | ~2022-06-19 | XR_ITS ---
EXAMINATION: 1. RADIOGRAPHS BILATERAL KNEES STANDING 2. RADIOGRAPHS LEFT KNEE CLINICAL INFORMATION: Pain COMPARISON: Left knee x-rays March 25, 2022 and bilateral knee x-rays July 08, 2021 TECHNIQUE: Standing AP views of both knees were obtained. Additional lateral and patellar sunrise views of the left knee were obtained. FINDINGS: Left knee: Patient is status post left total knee arthroplasty. Components are in expected orientation. There is no evidence of prosthetic failure. No periprosthetic fracture. There is diffuse soft tissue swelling of the anterior left knee with a small suprapatellar joint effusion suspected. Right knee: AP view of the right knee demonstrates severe narrowing of the medial joint compartment. Small tricompartmental marginal osteophytes are noted, most predominantly involving the medial compartment. XR/XR knee standing BI IMPRESSION: -Diffuse soft tissue swelling of the anterior left knee in this patient who is status post total left knee arthroplasty. -Moderate degenerative changes of the right knee particularly involving the medial compartment.
--- NOTE | ~2022-06-19 | XR_ITS ---
EXAMINATION: 1. RADIOGRAPHS BILATERAL KNEES STANDING 2. RADIOGRAPHS LEFT KNEE CLINICAL INFORMATION: Pain COMPARISON: Left knee x-rays March 25, 2022 and bilateral knee x-rays July 08, 2021 TECHNIQUE: Standing AP views of both knees were obtained. Additional lateral and patellar sunrise views of the left knee were obtained. FINDINGS: Left knee: Patient is status post left total knee arthroplasty. Components are in expected orientation. There is no evidence of prosthetic failure. No periprosthetic fracture. There is diffuse soft tissue swelling of the anterior left knee with a small suprapatellar joint effusion suspected. Right knee: AP view of the right knee demonstrates severe narrowing of the medial joint compartment. Small tricompartmental marginal osteophytes are noted, most predominantly involving the medial compartment. XR/XR knee LT 2V IMPRESSION: -Diffuse soft tissue swelling of the anterior left knee in this patient who is status post total left knee arthroplasty. -Moderate degenerative changes of the right knee particularly involving the medial compartment.
== END 2022-06-19 12:19 | disposition home or self-care (01) ==
LOC: HO.HOSX 12:18
PROVIDERS: Visit Provider Orthopaedic Surgery
DX: M25.562 Pain in left knee (principal); M25.561 Pain in right knee
CPT/HCPCS: 73560; 73565

== ENCOUNTER → 2022-06-19 13:05 | Outpatient (BNVA) | payer MEDICARE, SELFPAY | PROVIDERS: PCP Physician Assistant Medical; Visit Provider Orthopaedic Surgery | DX: Z47.1 Aftercare following joint replacement surgery (principal); M25.562 Pain in left knee; Z96.652 Presence of left artificial knee joint | CPT/HCPCS: 99212 ==

== ENCOUNTER 2022-08-21 08:51 | Outpatient (REF) | payer MEDICARE, SELFPAY ==
--- NOTE | ~2022-08-21 | XR_ITS ---
EXAMINATION: XR KNEE STANDING, BILATERAL XR KNEE, LEFT CLINICAL INFORMATION: Left knee pain. COMPARISON: None TECHNIQUE: AP bilateral knee standing. Left knee 2 views. FINDINGS: AP Bilateral Knee: There is a total left knee prosthesis in satisfactory alignment. There is severe loss of medial compartment joint space left knee. The lateral compartment joints is maintained. No visible acute fracture, dislocation or subluxation seen. Left Knee: There is a total left knee prosthesis with prosthetic components in satisfactory alignment. No visible acute fracture, dislocation or subluxation seen. No periprosthetic loosening or fracture noted. Suspect mild suprapatellar joint effusion and anterior infrapatellar superficial soft tissue swelling. XR/XR knee standing BI IMPRESSION: 1. Total left knee prosthesis in satisfactory alignment. Suspect mild suprapatellar joint effusion and anterior infrapatellar superficial soft tissue swelling. 2. [id number] degenerative changes medial compartment right knee.
--- NOTE | ~2022-08-21 | XR_ITS ---
EXAMINATION: XR KNEE STANDING, BILATERAL XR KNEE, LEFT CLINICAL INFORMATION: Left knee pain. COMPARISON: None TECHNIQUE: AP bilateral knee standing. Left knee 2 views. FINDINGS: AP Bilateral Knee: There is a total left knee prosthesis in satisfactory alignment. There is severe loss of medial compartment joint space left knee. The lateral compartment joints is maintained. No visible acute fracture, dislocation or subluxation seen. Left Knee: There is a total left knee prosthesis with prosthetic components in satisfactory alignment. No visible acute fracture, dislocation or subluxation seen. No periprosthetic loosening or fracture noted. Suspect mild suprapatellar joint effusion and anterior infrapatellar superficial soft tissue swelling. XR/XR knee LT 2V IMPRESSION: 1. Total left knee prosthesis in satisfactory alignment. Suspect mild suprapatellar joint effusion and anterior infrapatellar superficial soft tissue swelling. 2. [id number] degenerative changes medial compartment right knee.
== END 2022-08-21 08:52 | disposition home or self-care (01) ==
LOC: HO.HOSX 08:51
PROVIDERS: Visit Provider Orthopaedic Surgery
DX: M25.562 Pain in left knee (principal); Z96.652 Presence of left artificial knee joint
CPT/HCPCS: 73560; 73565; 99212

== ENCOUNTER → 2023-03-03 09:12 | Outpatient (BNVA) | payer MEDICARE, SELFPAY | PROVIDERS: PCP Obstetrics & Gynecology; Visit Provider Internal Medicine | DX: I44.4 Left anterior fascicular block (principal); I10 Essential (primary) hypertension | CPT/HCPCS: 93005; 99212 ==

== ENCOUNTER 2023-03-23 08:30 | Outpatient (REF) | payer MEDICARE, SELFPAY | END 2023-03-23 08:31 | disposition home or self-care (01) | LOC: HO.HOSX 08:30 | PROVIDERS: Visit Provider Orthopaedic Surgery | DX: Z13.89 Encounter for screening for other disorder (principal) ==

== ENCOUNTER 2024-11-26 14:22 | Emergency (ER) | payer OTHER, SELFPAY ==
[2024-11-26] VITALS (9 sets, daily range): BP systolic 120–126; BP diastolic 54–67; PULSE 76–88; RESP 14–20; TEMP 36.7–36.9; O2SAT 97–99; BMI 21.7
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
[2024-11-26 15:50] LABS: Hematocrit 23.5 % (42.0-52.0); Mean Corpuscular HGB Conc 28.5 g/dl (31.0-36.0); Mean Corpuscular Volume 98.3 fL (80.0-98.0); Mean Platelet Volume 13.3 fL (9.4-12.4); NRBC Pct Auto 0.9 /100WBC (0.0-0.2); Red Blood Count 2.39 X10*6/uL (4.60-5.80); Red Cell Distribution Width 18.4 % (11.0-16.0); White Blood Count 10.8 X10*3/uL (4.8-10.8)
[2024-11-26 15:55] LABS: Hemoglobin 6.7 g/dl (14.0-18.0)
[2024-11-26 16:25] LABS: Alanine Aminotransferase 7 U/L (0-40); Albumin Level 2.7 g/dL (3.5-5.0); Anion Gap 11 (12-20); Aspartate Amino Transferase 27 U/L (5-37); Bilirubin Direct 0.4 mg/dL (0.0-0.5); Bilirubin Total 0.9 mg/dL (0.0-1.0); Blood Urea Nitrogen 21 mg/dL (9-16); Calcium 8.3 mg/dL (8.4-10.2); Carbon Dioxide 24 mmol/L (22-29); Chloride 108 mmol/L (96-108); Creatinine Clr Calc Pharmacy 67.5; Estimated Glomerular Filt Rate > 60; Glucose Random 104 mg/dL (60-115); Potassium 4.3 mmol/L (3.3-5.1); Sodium 139 mmol/L (135-145); Total Protein 6.2 g/dL (6.5-8.0)
[2024-11-26 16:38] LABS: SLIDE REVIEW MANUAL DIFF
[2024-11-26 16:43] LABS: Atypical Lymph Absolute Manual 0.4 x10*3/uL; Atypical Lymphs Percent Manual 4 % (0-6); Lymphocytes Percent Manual 9 % (20-40); Monocytes Absolute Manual 0.2 X10*3/uL (0.1-1.2); Monocytes Percent Manual 2 % (2-11); Myelocytes Absolute 0.1 X10*/uL; Myelocytes Percent 1 %; Neutrophils Percent Manual 84 % (45-73)
[2024-11-26 16:49] LABS: Alkaline Phosphatase 65 U/L (39-117)
[2024-11-26 16:51] LABS: Ovalocytes 1+ (5-14) /OIF; Platelet Estimate DECREASED (NORMAL); Platelet Morphology Comment NORMAL; RBC Morphology NOTED
[2024-11-26 16:54] LABS: Band Neutrophils Percent 0 % (3-5); Neutrophils Absolute Manual 9.1 X10*3/uL (2.0-8.3); Platelet Count 51 X10*3/uL (160-400)
--- NOTE | 2024-11-26 19:33 | MHC.EDTECH ---
This tech took over care of pt at 1900,rounded and introduced self to patient,vitals taken,pt appears comfortable,visitor at bedside,call trinidad in reach
[2024-11-26] MEDS: clonazePAM 0.5 MG TABLET PO (19:49)
--- NOTE | 2024-11-26 20:19 | MHC.EDTECH ---
T/W removed patient's brief,per-care given, [place] cath placed to keep pt clean and dry,pt tolerated well,pt has an open are to buttocks,foam dressing applied and barrier cream,RN at bedside with T/W
--- NOTE | 2024-11-26 21:39 | PC.NURSE ---
Called [facility], spoke to Erika Nurse, gave verbal report, all questions answered, patient to return when transport available.
--- NOTE | 2024-11-26 21:55 | PC.NURSE ---
Addendum entered by Allie Daniels RN 11/26/24 21:56: Coccyx area picture taken by JACQUE Uriostegui before appying allevyn and barrier cream Original Note:
== END 2024-11-26 22:09 | disposition skilled nursing facility (03) ==
PROVIDERS: Nurse Practitioner Family; Emergency Provider Emergency Medicine; PCP Internal Medicine
DX: D46.9 Myelodysplastic syndrome, unspecified (principal); L03.115 Cellulitis of right lower limb; I10 Essential (primary) hypertension; Z79.899 Other long term (current) drug therapy
CPT/HCPCS: 36415; 36430; 80048; 80076; 85007; 85025; 85027; 86850; 86900; 86901; 86923; 99284; 99285; P9016

== ENCOUNTER 2025-01-06 14:12 | Inpatient (IN) | payer OTHER, SELFPAY ==
[2025-01-06] VITALS (8 sets, daily range): BP systolic 107–136; BP diastolic 47–69; PULSE 74–83; RESP 13–18; TEMP 36.1–36.9; O2SAT 90–97; BMI 19.5
--- NOTE | ~2025-01-06 | NM_ITS ---
EXAMINATION: NM HEPATOBILIARY WITH PHARM HISTORY: Acute CCY , questionable.. TECHNIQUE: An hepatobiliary scan was performed following the intravenous administration of 5 mCi technetium 99m-mebrofenin. Sequential images were obtained to 1 hour. Subsequently, the patient received 1.6 mcg IV CCK over 30 minutes and additional imaging was performed. COMPARISON: Correlation is made with an unenhanced CT of the abdomen dated 01/07/2025. FINDINGS: There is normal uptake and excretion of the radiopharmaceutical by the liver. Common bile duct and gallbladder activity are noted by 14 minutes. Bowel activity is seen at 24 minutes. After the administration of intravenous CCK, the estimated gallbladder ejection fraction is 4%, which is abnormally low. NM/NM hepatobiliary w pharm IMPRESSION: No evidence of acute cholecystitis. Abnormally low gallbladder ejection fraction of 4%, compatible with biliary dyskinesia. Electronically signed by: Maximus Ramirez MD 01/10/2025 12:50 PM EDT
--- NOTE | ~2025-01-06 | XR_ITS ---
EXAMINATION: XR CHEST 1 VIEW HISTORY: hypoxia COMPARISON: There are no prior studies for comparison. FINDINGS: A single AP portable view of the chest performed at 2:54 PM is submitted. A right-sided port is noted with its tip in the right atrium. There is patchy opacities bilaterally which could represent pneumonia. There is blunting of both lateral costophrenic angles suggesting tiny effusions. There is no pneumothorax. The heart is normal in size. The aorta is calcified. There is degenerative disc disease of the spine. XR/XR chest 1V IMPRESSION: Patchy opacities bilaterally which could represent pneumonia. Probable tiny bilateral pleural effusions. Electronically signed by: Maximus Ramirez MD 01/06/2025 03:31 PM EDT
--- NOTE | ~2025-01-06 | CT_ITS ---
CLINICAL HISTORY: Abd Pain, diarrhea, metastatic cancer CT abdomen and pelvis without contrast Comparison: None Findings: Small bilateral pleural effusions with adjacent compressive atelectasis and interlobular septal thickening. Cardiomegaly. Calcification of the mitral annulus. Decreased attenuation of the blood within the ventricles may indicate anemia. The gallbladder is distended, measuring 4.5 cm in transverse dimension. Cholelithiasis. Severe gallbladder wall thickening. Pericholecystic fluid. Periportal edema. Splenomegaly, measuring 17.5 cm in craniocaudal dimension. No hydronephrosis. Right nephrolithiasis measures up to 9 mm. Left nephrolithiasis measures up to 14 mm. Bilateral renal hyperattenuating lesions. Left renal cyst with peripheral calcification. Moderate bilateral perinephric stranding. Status post prostatectomy. Unremarkable bladder. The other solid organs are unremarkable. No bowel wall thickening or dilation. A normal appendix is identified. Colonic diverticulosis. Moderately increased stool quantity. No aneurysm. Severe calcified atherosclerotic disease. No lymphadenopathy. Small ascites. Infiltration of the subcutaneous fat. No acute osseous abnormality. Impression: Suspect acute cholecystitis; there is cholelithiasis with gallbladder distention, wall thickening and pericholecystic fluid. Evidence of volume overload including mild pulmonary edema, small ascites, anasarca and periportal edema. Moderately increased stool quantity may indicate constipation. Splenomegaly. This document has been electronically signed by: Coral Mccoy MD on 01/07/2025 14:11:40
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
[2025-01-06 15:07] LABS: Hematocrit 24.3 % (42.0-52.0); Mean Corpuscular HGB Conc 28.8 g/dl (31.0-36.0); Mean Corpuscular Hemoglobin 29.5 pg (27.0-33.0); Mean Corpuscular Volume 102.5 fL (80.0-98.0); PLT CLUMP 1; Red Blood Count 2.37 X10*6/uL (4.60-5.80); Red Cell Distribution Width 20.9 % (11.0-16.0)
[2025-01-06 15:11] LABS: WBC ABN SCTR FOR CBC 1; White Blood Count 25.8 X10*3/uL (4.8-10.8)
[2025-01-06 15:14] LABS: Alanine Aminotransferase 44 U/L (0-40); Albumin Level 3.1 g/dL (3.5-5.0); Anion Gap 15 (12-20); Aspartate Amino Transferase 92 U/L (5-37); Bilirubin Direct 0.4 mg/dL (0.0-0.5); Bilirubin Total 1.2 mg/dL (0.0-1.0); Blood Urea Nitrogen 63 mg/dL (9-16); Calcium 8.3 mg/dL (8.4-10.2); Carbon Dioxide 22 mmol/L (22-29); Chloride 103 mmol/L (96-108); Creatinine Clr Calc Pharmacy 28.5; Estimated Glomerular Filt Rate 34; Glucose Random 145 mg/dL (60-115); Magnesium 2.2 mg/dL (1.6-2.6); Potassium 5.1 mmol/L (3.3-5.1); Sodium 135 mmol/L (135-145); Total Protein 6.9 g/dL (6.5-8.0)
--- NOTE | 2025-01-06 15:14 | PC.NURSE ---
critical lab value - hemoglobin of 7.0 received at this time. EILEEN Bazan notified/aware.
[2025-01-06] MEDS: 0.9 % Sodium Chloride 1,000 ML 999 ML IV (15:25)
--- NOTE | 2025-01-06 15:50 | PC.NURSE ---
18gIV placed in the left forearm as well as an 18gIV in the right AC - labs/cultures obtained/sent to lab. pending RBC transfusion at this time.
[2025-01-06 15:58] LABS: Alkaline Phosphatase 98 U/L (39-117)
--- NOTE | 2025-01-06 16:00 | ECG_ITS ---
Test Reason : LIGHTHEADED Blood Pressure : */* mmHG Vent. Rate : 75 BPM Atrial Rate : 75 BPM P-R Int : 150 ms QRS Dur : 86 ms QT Int : 428 ms P-R-T Axes : 60 -48 24 degrees QTcB Int : 477 ms Normal sinus rhythm Left anterior fascicular block Abnormal ECG No previous ECGs available Referred By: Hortensia Ceja Electronically Signed By: Edson Harvey
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
[2025-01-06] MEDS: cefEPime HCl/D5W 2 GM/50 ML PIGGYBACK IV (16:16)
--- NOTE | 2025-01-06 16:17 | PC.NURSE ---
pt tolerated first 15 min of RBC infusion well w/o complications. no signs of reactions noted. vitals remained stable/wnl. nsr on the surveillance monitor. pt remains on RA w/o difficulty - no sob/wob noted. respirations even/unlabored. pt transitioned to maintenance rate @ 180mls/hr. pt otherwise seen by admitting hospitalist/aware of plan to be admitted at this time. family remains bedside for support. plan of care ongoing. call trinidad placed within reach.
[2025-01-06] MEDS: vancomycin HCL 1,000 MG, vancomycin HCL 750 MG in 0.9 % Sodium Chloride 500 ML 267.5 MG IV (16:30)
[2025-01-06 16:37] LABS: C Reactive Protein 11.11 mg/dL (< or = 0.50)
[2025-01-06 16:50] LABS: Lactic Acid 2.4 mmol/L (0.5-2.0)
[2025-01-06 17:01] LABS: Atypical Lymph Absolute Manual 0.8 x10*3/uL; Atypical Lymphs Percent Manual 3 % (0-6); Band Neutrophils Percent 1 % (3-5); Lymphocytes Absolute Manual 3.4 X10*3/uL (1.2-4.9); Lymphocytes Percent Manual 13 % (20-40); Monocytes Absolute Manual 2.3 X10*3/uL (0.1-1.2); Monocytes Percent Manual 9 % (2-11); Neutrophils Absolute Manual 19.4 X10*3/uL (2.0-8.3); Neutrophils Percent Manual 74 % (45-73)
[2025-01-06] MEDS: 0.9 % Sodium Chloride 1,000 ML 100 ML IVCONT (17:02)
[2025-01-06 17:03] LABS: RBC Morphology NOTED
[2025-01-06 17:04] LABS: Ovalocytes 1+ (5-14) /OIF; Polychromasia 1+ (0-2) /OIF; Tear Drop Cells 1+ (0-2) /OIF
[2025-01-06 17:08] LABS: Platelet Estimate DECREASED (NORMAL); Platelet Morphology Comment NORMAL
[2025-01-06 17:09] LABS: Platelet Count 50 X10*3/uL (160-400)
[2025-01-06 17:13] LABS: Erythrocyte Sedimentation Rate 27 MM/HR (0-15)
--- NOTE | 2025-01-06 18:00 | PC.NURSE ---
report given to AMBREEN Pryor in overflow at this time.
[2025-01-06 18:17] LABS: Reflex Lactate? Lactic Acid Added
[2025-01-06 18:33] LABS: Troponin-I High Sensitivity 77.8 ng/L (<3.5-35.0)
--- NOTE | 2025-01-06 18:47 | PHA.MEDREC ---
Addendum entered by Dick Ruvalcaba [facility] 01/06/25 18:59: med rec reviewed Original Note: Pharmacy Consult ? Medication Reconciliation Pharmacy has completed the medication reconciliation. Utilized list from Destiny Fischer to confirm med list.
--- NOTE | 2025-01-06 19:45 | MHC.EDTECH ---
pt voided 300ml dark urine
[2025-01-06] MEDS: oxyCODONE HCl Immed Release 5 MG TABLET PO (20:31)
[2025-01-06] MEDS: ondansetron HCL 4 MG/2 ML VIAL IVPUSH (20:37)
--- NOTE | 2025-01-06 21:00 | PC.NURSE ---
This advertising copywriter assumed care of this Pt at 1900. Pt A&Ox3, reports all over body pain and right leg pain. Dressing noted to right lower leg. Pt also reports some nausea. Pt medicated per MAR with little to no effectiveness. Pt tolerating PO intake. Reports no ambulation related to feeling to weak. Male purewick in place, draining dark nathan color urine.
[2025-01-07] MEDS: Melatonin 3 MG TABLET 6 MG PO ×2 (00:15→20:54)
[2025-01-07] MEDS: Calcium Carbonate 750 MG TAB.CHEW PO ×2 (00:18→12:51)
[2025-01-07] MEDS: 0.9 % Sodium Chloride 1,000 ML 100 ML IVCONT ×2 (02:26→09:16)
[2025-01-07] MEDS: Acetaminophen 325 MG TABLET 650 MG PO ×2 (03:17→10:49)
[2025-01-07] MEDS: oxyCODONE HCl Immed Release 5 MG TABLET PO ×3 (03:18→14:41)
[2025-01-07] MEDS: ondansetron HCL 4 MG/2 ML VIAL IVPUSH ×3 (04:02→20:53)
[2025-01-07] MEDS: Morphine Sulfate 4 MG/ML CARTRIDGE IVPUSH (05:01)
--- NOTE | 2025-01-07 05:19 | PC.NURSE ---
Assumed care - Patient c/o generalized/ abdominal pain. 05/28, pt also c/o nausea. Oxycodone administered with no effect. Zofran dose given as per DEC. Provider notified and ordered one time dose of Morphine 4 mg. Patient currently resting at present time , medication had good effect. Will continue to monitor.
[2025-01-07 06:09] VITALS: BP 129/65; PULSE 84; RESP 14; TEMP 36.1; O2SAT 97
[2025-01-07 06:34] LABS: Hematocrit 26.3 % (42.0-52.0); Hemoglobin 7.8 g/dl (14.0-18.0); Mean Corpuscular HGB Conc 29.7 g/dl (31.0-36.0); Mean Corpuscular Hemoglobin 29.2 pg (27.0-33.0); Mean Corpuscular Volume 98.5 fL (80.0-98.0); PLT CLUMP 1; Red Blood Count 2.67 X10*6/uL (4.60-5.80); Red Cell Distribution Width 23.2 % (11.0-16.0)
[2025-01-07 06:36] LABS: NRBC Pct Auto 4.6 /100WBC (0.0-0.2); WBC ABN SCTR FOR CBC 1
[2025-01-07 06:38] LABS: White Blood Count 30.9 X10*3/uL (4.8-10.8)
[2025-01-07 06:57] LABS: Alanine Aminotransferase 44 U/L (0-40); Alkaline Phosphatase 93 U/L (39-117); Anion Gap 14 (12-20); Aspartate Amino Transferase 76 U/L (5-37); Bilirubin Total 1.5 mg/dL (0.0-1.0); Blood Urea Nitrogen 56 mg/dL (9-16); Calcium 7.9 mg/dL (8.4-10.2); Carbon Dioxide 18 mmol/L (22-29); Chloride 107 mmol/L (96-108); Creatinine Clr Calc Pharmacy 36.4; Estimated Glomerular Filt Rate 44; Glucose Random 182 mg/dL (60-115); Potassium 4.7 mmol/L (3.3-5.1); Sodium 134 mmol/L (135-145); Total Protein 6.7 g/dL (6.5-8.0)
[2025-01-07 07:30] LABS: Band Neutrophils Percent 2 % (3-5); Nucleated Red Blood Cells 3 /100WBC (0-0)
[2025-01-07 07:31] LABS: Macrocytosis 1+ (5-14) /OIF; RBC Morphology NOTED
[2025-01-07 07:33] LABS: Acanthocytes 1+ (0-2) /OIF; Ovalocytes 1+ (5-14) /OIF; Polychromasia 2+ (3-5) /OIF; Tear Drop Cells 1+ (0-2) /OIF
[2025-01-07 07:35] LABS: Large Platelet PRESENT; Platelet Estimate DECREASED (NORMAL); Platelet Morphology Comment NOTED
[2025-01-07 07:36] LABS: Platelet Count 51 X10*3/uL (160-400)
--- NOTE | 2025-01-07 07:57 | PC.NURSE ---
Addendum entered by Evens Hu RN 01/07/25 12:52: md assessed pt at bedside this AM. per md ok to administer IVP morphine early. pt stated tums has worked before for this, will attempt and re-assess. md informed pt is refusing to eat and drink d/t abd pain. Original Note: Messaged - [facility] overflow bed [address] - c/o abd pain (7/10, throbbing) and nausea w/ frequent belching. received one time dose IVP morphine overnight stating it helped. IVP zofran isnt due until 1200. ? PRN pain med besides tylenol and early dose of zofran or different med, thank you
[2025-01-07] MEDS: Doxycycline Hyclate 100 MG in 0.9 % Sodium Chloride 250 ML 166.67 MG IV (09:15)
[2025-01-07] MEDS: polyethylene glycoL 3350 17 GM POWD.PACK PO (09:15)
[2025-01-07] MEDS: Escitalopram Oxalate 10 MG TABLET PO (09:17)
[2025-01-07] MEDS: Morphine Sulfate 2 MG/ML CARTRIDGE IVPUSH ×2 (09:17→12:49)
[2025-01-07] MEDS: amLODIPine Besylate 5 MG TABLET PO (09:17)
[2025-01-07 09:28] LABS: Iron 45 mcg/dL (45-160); Lactate Dehydrogenase 926 U/L (118-273); Percent Iron Saturation 22 % (15-50); Total Iron Binding Capacity 204 mcg/dL (228-428); Unsaturated Iron Binding 159 ug/dL
--- NOTE | 2025-01-07 10:33 | MHC.EDTECH ---
pt ate 0% of his breakfast
--- NOTE | 2025-01-07 10:34 | MHC.EDTECH ---
pt teeth washed brushed refused to wash up at this time he stated he will wash up later
--- NOTE | 2025-01-07 11:06 | MHC.EDTECH ---
pt voided 700ml
[2025-01-07] MEDS: Simethicone 80 MG TAB.CHEW PO ×2 (11:51→20:54)
[2025-01-07] MEDS: cefTRIAXone sodium 1 GM VIAL IVPUSH (11:51)
[2025-01-07 11:57] LABS: Appearance Urine Cloudy; Color Urine Dark Yellow; Glucose Urine UA Negative (Negative); Leukocyte Esterase Urine Negative (Negative); Nitrite Urine Negative (Negative); PH 5.5 (5.0-9.0); UMIC TRIGGER UACC YES; Urine Blood Large (3+) (Negative); Urine Ketones Negative (Negative); Urine Protein 30 (1+) mg/dL (Neg-Trace)
[2025-01-07 11:59] LABS: Bacteria Urine None Seen (None Seen); Hyaline Casts Urine 0-2 /LPF (0-2); RBC Urine >20 /HPF (0-2); Squamous Epithelial Cell Urine 0-2 /HPF (0-2); WBC Urine 0-5 /HPF (0-5)
[2025-01-07 12:19] VITALS: BP 129/65; PULSE 84; O2SAT 97
[2025-01-07 12:50] VITALS: BP 162/73; PULSE 81; RESP 16; TEMP 36.6; O2SAT 95
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
[2025-01-07] MEDS: Milk of Magnesia 30 ML ORAL.SUSP PO ×2 (14:41→20:59)
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
--- NOTE | 2025-01-07 15:11 | HO.PM.IMPN ---
Subjective Subjective Date of Service: 01/07/25 Interval History: seen and evaluated this morning reporting abdominal pain WBCs went up to 30K feels weak no other overnight events Review of Systems Review of Systems: Yes all other systems are reviewed and are negative Physical Exam Vital Signs: Vital Signs: Last Vital Signs Temp 97.8 F 01/07/25 12:50 Pulse 81 01/07/25 12:50 Resp 16 01/07/25 12:50 BP 162/73 H 01/07/25 12:50 Pulse Ox 95 01/07/25 12:50 O2 Del Method Nasal Cannula 01/07/25 12:50 O2 Flow Rate 2 01/07/25 12:50 BMI result Body Mass Index 19.5 Const: Other: Constitutional : Awake, interactive, frail looking, not in distress Neck : Normal inspection, Supple Cardiovascular : RRR, no JVP, no lower extremity edema Respiratory : good bilateral air entry, no crackles, wheezes or rhonchi Gastrointestinal: soft, lax, Normal bowel sounds, mild genetalized tenderness more noted to Right side Skin : Warm, Dry, large open wound in RLE with granulation tissue, no warmth, drainage or erythema Neurological : Alert & oriented x3, No focal deficit Objective Data Active Medications Acetaminophen (Acetaminophen 325 Mg Tablet) 650 mg PO Q6H PRN PRN Reason: Pain, Mild 1-3,fever,headache Last Admin: 01/07/25 10:49 Dose: 650 mg Documented By: FUENTES Amlodipine Besylate (Amlodipine Besylate 5 Mg Tablet) 5 mg PO DAILY [facility]; Protocol Last Admin: 01/07/25 09:17 Dose: 5 mg Documented By: FUENTES Bisacodyl (Bisacodyl 10 Mg Supp.Rect) 10 mg NE DAILY PRN PRN Reason: Constipation Calcium Carbonate (Calcium Carbonate 750 Mg Tab.Chew) 750 mg PO Q4H PRN PRN Reason: Heartburn Last Admin: 01/07/25 12:51 Dose: 750 mg Documented By: FUENTES Escitalopram Oxalate (Escitalopram Oxalate 10 Mg Tablet) 10 mg PO DAILY [facility] Last Admin: 01/07/25 09:17 Dose: 10 mg Documented By: FUENTES Sodium Chloride (Ns) 1,000 mls @ 100 mls/hr IVCONT .Q10H [facility] Last Admin: 01/07/25 09:16 Dose: 100 mls/hr Documented By: FUENTES Piperacillin Sod/Tazobactam (Sod 3.375 gm/ Sodium Chloride) 50 mls @ 100 mls/hr IV Q6H [facility] Lactulose (Lactulose 20 Gm/30 Ml Solution) 20 gm PO BID PRN PRN Reason: Constipation Magnesium Hydroxide (Milk Of Magnesia 30 Ml Oral.Susp) 30 ml PO DAILY PRN PRN Reason: Constipation Last Admin: 01/07/25 14:41 Dose: 30 ml Documented By: FUENTES Magnesium Hydroxide (Milk Of Magnesia 30 Ml Oral.Susp) 30 ml PO BEDTIME PRN PRN Reason: Constipation Melatonin (Melatonin 3 Mg Tablet) 6 mg PO BEDTIME PRN PRN Reason: Insomnia Last Admin: 01/07/25 00:15 Dose: 6 mg Documented By: HUAN Morphine Sulfate (Morphine Sulfate 2 Mg/Ml Cartridge) 4 mg IVPUSH Q4H PRN; Protocol PRN Reason: Pain, Severe (Pain Scale 7-10) Naloxone HCl (Naloxone Hcl 0.4 Mg/Ml Vial) 0.4 mg SUBCUT Q2M PRN PRN Reason: Opiate Reversal Omeprazole (Omeprazole 20 Mg Capsule.Dr) 20 mg PO DAILY@0630 [facility] Ondansetron HCl (Ondansetron Hcl 4 Mg/2 Ml Vial) 4 mg IVPUSH Q8H PRN PRN Reason: Nausea and Vomiting Last Admin: 01/07/25 04:02 Dose: 4 mg Documented By: HUAN Comments: early dose per provider Oxycodone HCl (Oxycodone Hcl Immed Release 5 Mg Tablet) 5 mg PO Q4H PRN PRN Reason: Pain, Moderate(Pain Scale 4-6) Last Admin: 01/07/25 14:41 Dose: 5 mg Documented By: FUENTES Polyethylene Glycol (Polyethylene Glycol 3350 17 Gm Powd.Pack) 17 gm PO DAILY [facility] Last Admin: 01/07/25 09:15 Dose: 17 gm Documented By: FUENTES Simethicone (Simethicone 80 Mg Tab.Chew) 80 mg PO Q6H PRN PRN Reason: gas Last Admin: 01/07/25 11:51 Dose: 80 mg Documented By: FUENTES Sodium Chloride (0.9 % Sodium Chloride Flush 3 Ml Syringe) 3 ml IVFLUSH QSHIFT [facility] Last Admin: 01/07/25 09:39 Dose: Not Given Documented By: FUENTES Non-Admin Reason: IV Running Trazodone HCl (Trazodone Hcl 50 Mg Tablet) 50 mg PO BEDTIME [facility] Labs 01/07/25 06:17 01/07/25 06:17 Labs: Laboratory Results - last 24 hr 01/06/25 01/06/25 01/06/25 04:29 14:44 16:14 MCV 102.5 H MCH 29.5 MCHC 28.8 L RDW 20.9 H Plt Count 50 L MPV Not Reportable Immature Gran % (Auto) Cancelled Neut % (Auto) Cancelled Lymph % (Auto) Cancelled Williams % (Auto) Cancelled Eos % (Auto) Cancelled Baso % (Auto) Cancelled Lymph # (Auto) Cancelled Williams # (Auto) Cancelled Eos # (Auto) Cancelled Baso # (Auto) Cancelled Abs Immat Gran (auto) Cancelled Absolute Neuts (auto) Cancelled Absolute Nucleated RBC 1.030 H Nucleated RBC % (auto) 4.0 H Neutrophils % (Manual) 74 H Band Neutrophils % 1 L Lymphocytes % (Manual) 13 L Atypical Lymphs % (Man) 3 Monocytes % (Manual) 9 Basophils % (Manual) Metamyelocytes % Myelocytes % Blast Cells % (Manual) Abs Neuts (Manual) 19.4 H Lymphocytes # (Manual) 3.4 Atyp Lymphs # (Manual) 0.8 Monocytes # (Manual) 2.3 H Basophils # (Manual) Metamyelocytes # Myelocytes # Blast Cells # Nucleated RBCs Platelet Estimate DECREASED Large Platelets Plt Morphology Comment NORMAL RBC Morphology NOTED Polychromasia 1+ (0-2) Macrocytosis Tear Drop Cells 1+ (0-2) Ovalocytes 1+ (5-14) Acanthocytes (Spur) ESR 27 H Anion Gap 15 Estim Creat Clear Calc 28.5 Estimated GFR 34 Random Glucose 145 H Lactic Acid 2.4 H* Lactic Acid F/U @ 2Hr Calcium 8.3 L Magnesium 2.2 Iron TIBC % Saturation Unsat Iron Binding Total Bilirubin 1.2 H Direct Bilirubin 0.4 AST 92 H ALT 44 H Alkaline Phosphatase 98 Lactate Dehydrogenase C-Reactive Protein 11.11 H Total Protein 6.9 Albumin 3.1 L Urine Color Urine Appearance Urine pH Ur Specific [place] Urine Protein Urine Glucose (UA) Urine Ketones Urine Blood Urine Nitrite Ur Leukocyte Esterase Urine RBC Urine WBC Ur Squamous Epith Cells Urine Bacteria Hyaline Casts Blood Type O Negative Antibody Screen NEGATIVE Crossmatch See Detail 01/06/25 01/07/25 01/07/25 19:42 06:17 11:15 MCV 98.5 H MCH 29.2 MCHC 29.7 L RDW 23.2 H Plt Count 51 L MPV TNP Immature Gran % (Auto) Cancelled Neut % (Auto) Cancelled Lymph % (Auto) Cancelled Williams % (Auto) Cancelled Eos % (Auto) Cancelled Baso % (Auto) Cancelled Lymph # (Auto) Cancelled Williams # (Auto) Cancelled Eos # (Auto) Cancelled Baso # (Auto) Cancelled Abs Immat Gran (auto) Cancelled Absolute Neuts (auto) Cancelled Absolute Nucleated RBC 1.430 H Nucleated RBC % (auto) 4.6 H Neutrophils % (Manual) 71 Band Neutrophils % 2 L Lymphocytes % (Manual) 5 L Atypical Lymphs % (Man) 10 H Monocytes % (Manual) 6 Basophils % (Manual) 1 Metamyelocytes % 1 Myelocytes % 1 Blast Cells % (Manual) 3 Abs Neuts (Manual) 22.6 H Lymphocytes # (Manual) 1.5 Atyp Lymphs # (Manual) 3.1 Monocytes # (Manual) 1.9 H Basophils # (Manual) 0.3 H Metamyelocytes # 0.3 Myelocytes # 0.3 Blast Cells # 0.9 Nucleated RBCs 3 H Platelet Estimate DECREASED Large Platelets PRESENT Plt Morphology Comment NOTED RBC Morphology NOTED Polychromasia 2+ (3-5) Macrocytosis 1+ (5-14) Tear Drop Cells 1+ (0-2) Ovalocytes 1+ (5-14) Acanthocytes (Spur) 1+ (0-2) ESR Anion Gap 14 Estim Creat Clear Calc 36.4 Estimated GFR 44 Random Glucose 182 H Lactic Acid Lactic Acid F/U @ 2Hr 2.0 Calcium 7.9 L Magnesium Iron 45 TIBC 204 L % Saturation 22 Unsat Iron Binding 159 Total Bilirubin 1.5 H Direct Bilirubin AST 76 H ALT 44 H Alkaline Phosphatase 93 Lactate Dehydrogenase 926 H C-Reactive Protein Total Protein 6.7 Albumin 3.0 L Urine Color Dark Yellow Urine Appearance Cloudy Urine pH 5.5 Ur Specific [place] 1.020 Urine Protein 30 (1+) H Urine Glucose (UA) Negative Urine Ketones Negative Urine Blood Large (3+) H Urine Nitrite Negative Ur Leukocyte Esterase Negative Urine RBC >20 H Urine WBC 0-5 Ur Squamous Epith Cells 0-2 Urine Bacteria None Seen Hyaline Casts 0-2 Blood Type Antibody Screen Crossmatch Microbiology Microbiology Results: Microbiology 01/06/25 16:15 Gram Stain - Final Leg - Left Routine Culture - Preliminary Culture in progress. Assessment and Plan (1) Myelodysplastic syndrome: Status: Acute (2) Leukocytosis: Status: Acute (3) Frailty: Status: Acute (4) Symptomatic anemia: Status: Acute (5) Acute cholecystitis: Status: Acute Plan A 79 years old male with PMH of MDS on transfusions, skin cancer RLE, HTN, anxiety, who is presenting from with abnormal blood work showing low H&H and decrease oral intake. 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
[2025-01-07] MEDS: Piperacillin Sodium/Tazobactam 3.375 GM in 0.9 % Sodium Chloride 50 ML IV ×2 (15:30→20:55)
[2025-01-07] MEDS: Lactulose 20 GM/30 ML SOLUTION PO (15:38)
[2025-01-07] MEDS: Ketorolac Tromethamine 15 MG/ML VIAL IVPUSH (17:07)
[2025-01-07 20:00] VITALS: BP 100/54; PULSE 74; RESP 14; TEMP 36.4; O2SAT 92
--- NOTE | 2025-01-07 20:00 | PC.NURSE ---
blanchable redness observed to coccyx/sacrum region. foam dressing applied.
[2025-01-07] MEDS: Morphine Sulfate 2 MG/ML CARTRIDGE 4 MG IVPUSH (20:53)
[2025-01-07] MEDS: traZODone HCL 50 MG TABLET PO (20:55)
[2025-01-07 21:20] VITALS: RESP 16
[2025-01-07 23:14] VITALS: BP 102/51; PULSE 76; RESP 16; O2SAT 93
[2025-01-08] VITALS (9 sets, daily range): BP systolic 96–117; BP diastolic 45–63; PULSE 8–81; RESP 14–18; TEMP 36.4–36.8; O2SAT 92–94
[2025-01-08] MEDS: 0.9 % Sodium Chloride 1,000 ML 100 ML IVCONT ×2 (00:05→08:12)
[2025-01-08] MEDS: Piperacillin Sodium/Tazobactam 3.375 GM in 0.9 % Sodium Chloride 50 ML IV ×4 (02:54→20:53)
[2025-01-08] MEDS: Omeprazole 20 MG CAPSULE.DR PO (06:31)
[2025-01-08] MEDS: amLODIPine Besylate 5 MG TABLET PO (08:11)
[2025-01-08] MEDS: Escitalopram Oxalate 10 MG TABLET PO (08:11)
[2025-01-08] MEDS: polyethylene glycoL 3350 17 GM POWD.PACK PO (08:11)
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
[2025-01-08 09:51] LABS: Mean Corpuscular HGB Conc 28.8 g/dl (31.0-36.0); Mean Corpuscular Hemoglobin 29.4 pg (27.0-33.0); Mean Corpuscular Volume 102.1 fL (80.0-98.0); PLT CLUMP 1; Red Blood Count 2.35 X10*6/uL (4.60-5.80); Red Cell Distribution Width 22.5 % (11.0-16.0)
[2025-01-08 09:54] LABS: WBC ABN SCTR FOR CBC 1
[2025-01-08 09:57] LABS: White Blood Count 17.3 X10*3/uL (4.8-10.8)
[2025-01-08 10:03] LABS: Hemoglobin 6.9 g/dl (14.0-18.0)
[2025-01-08 10:36] LABS: Band Neutrophils Percent 1 % (3-5); Basophils Abs Manual 0.2 X10*3/uL (0.0-0.2); Basophils Percent Manual 1 % (0-2); Blast Percent 6 %; Lymphocytes Absolute Manual 0.9 X10*3/uL (1.2-4.9); Lymphocytes Percent Manual 5 % (20-40); Metamyelocytes Absolute 0.2 X10*3/uL; Metamyelocytes Percent 1 %; Monocytes Absolute Manual 1.6 X10*3/uL (0.1-1.2); Monocytes Percent Manual 9 % (2-11); Neutrophils Absolute Manual 13.5 X10*3/uL (2.0-8.3); Neutrophils Percent Manual 77 % (45-73); Nucleated Red Blood Cells 6 /100WBC (0-0)
[2025-01-08 10:37] LABS: Large Platelet PRESENT; Macrocytosis 1+ (5-14) /OIF; Platelet Estimate DECREASED (NORMAL); Platelet Morphology Comment NOTED; RBC Morphology NOTED
[2025-01-08 10:38] LABS: Burr Cells 1+ (0-2) /OIF; Hypersegmented Neutrophils PRESENT; Ovalocytes 1+ (5-14) /OIF; Tear Drop Cells 1+ (0-2) /OIF
[2025-01-08 10:39] LABS: Platelet Count 51 X10*3/uL (160-400)
[2025-01-08 10:42] LABS: NRBC Pct Auto 8.5 /100WBC (0.0-0.2)
[2025-01-08 10:50] LABS: Anion Gap 28 (12-20); Blood Urea Nitrogen 45 mg/dL (9-16); Calcium 6.4 mg/dL (8.4-10.2); Carbon Dioxide 16 mmol/L (22-29); Chloride 111 mmol/L (96-108); Creatinine Clr Calc Pharmacy 46.5; Estimated Glomerular Filt Rate 59; Glucose Random 99 mg/dL (60-115); Potassium 3.6 mmol/L (3.3-5.1); Sodium 151 mmol/L (135-145)
[2025-01-08] MEDS: Lactulose 20 GM/30 ML SOLUTION PO (10:57)
--- NOTE | 2025-01-08 11:04 | PC.NURSE ---
Critical lab result received via telephone of a Hemoglobin of 6.9. Critical result reported to Dr. Welch via [email or web address]. Acknowledgement of information received No new orders at this time.
--- NOTE | 2025-01-08 11:40 | MHC.CM.PN ---
PT FROM [facility] WHERE HE WILL RETURN WHEN [facility] WILL REQUIRE BLS TRANSPORT
--- NOTE | 2025-01-08 12:24 | P.PNIM_ITS ---
Subjective Subjective Date of Service: 01/08/25 Interval History: seen and evaluated this morning improved abdominal pain WBCs trended down to 17K feels better Hb dropped to 6.9 no other overnight events Review of Systems Review of Systems: Yes all other systems are reviewed and are negative Physical Exam 2 Vital Signs: Vital Signs: Last Vital Signs Temp 97.6 F 01/08/25 06:37 Pulse 75 01/08/25 08:00 Resp 18 01/08/25 08:00 BP 96/50 L 01/08/25 08:00 Pulse Ox 92 01/08/25 08:00 O2 Del Method Room Air 01/08/25 08:00 O2 Flow Rate 1 01/07/25 23:14 BMI result Body Mass Index 19.5 Const: Other: Constitutional : Awake, interactive, frail looking, not in distress Neck : Normal inspection, Supple Cardiovascular : RRR, no JVP, no lower extremity edema Respiratory : good bilateral air entry, no crackles, wheezes or rhonchi Gastrointestinal: soft, lax, Normal bowel sounds, no significant tenderness Skin : Warm, Dry, large open wound in RLE with granulation tissue, no warmth, drainage or erythema Neurological : Alert & oriented x3, No focal deficit Objective Data Active Medications Acetaminophen (Acetaminophen 325 Mg Tablet) 650 mg PO Q6H PRN PRN Reason: Pain, Mild 1-3,fever,headache Last Admin: 01/07/25 10:49 Dose: 650 mg Documented By: FUENTES Amlodipine Besylate (Amlodipine Besylate 5 Mg Tablet) 5 mg PO DAILY [facility]; Protocol Last Admin: 01/08/25 08:11 Dose: 5 mg Documented By: FUENTES Bisacodyl (Bisacodyl 10 Mg Supp.Rect) 10 mg [place] DAILY PRN PRN Reason: Constipation Calcium Carbonate (Calcium Carbonate 750 Mg Tab.Chew) 750 mg PO Q4H PRN PRN Reason: Heartburn Last Admin: 01/07/25 12:51 Dose: 750 mg Documented By: FUENTES Escitalopram Oxalate (Escitalopram Oxalate 10 Mg Tablet) 10 mg PO DAILY [facility] Last Admin: 01/08/25 08:11 Dose: 10 mg Documented By: FUENTES Sodium Chloride (Ns) 1,000 mls @ 100 mls/hr IVCONT .Q10H [facility] Last Admin: 01/08/25 08:12 Dose: 100 mls/hr Documented By: FUENTES Piperacillin Sod/Tazobactam (Sod 3.375 gm/ Sodium Chloride) 50 mls @ 100 mls/hr IV Q6H [facility] Last Infusion: 01/08/25 08:41 Dose: Infused Documented By: KAMERON Lactulose (Lactulose 20 Gm/30 Ml Solution) 20 gm PO BID [facility] Last Admin: 01/08/25 10:57 Dose: 20 gm Documented By: KAMERON Magnesium Hydroxide (Milk Of Magnesia 30 Ml Oral.Susp) 30 ml PO DAILY PRN PRN Reason: Constipation Last Admin: 01/07/25 14:41 Dose: 30 ml Documented By: FUENTES Magnesium Hydroxide (Milk Of Magnesia 30 Ml Oral.Susp) 30 ml PO BEDTIME PRN PRN Reason: Constipation Last Admin: 01/07/25 20:59 Dose: 30 ml Documented By: BRITTANY Melatonin (Melatonin 3 Mg Tablet) 6 mg PO BEDTIME PRN PRN Reason: Insomnia Last Admin: 01/07/25 20:54 Dose: 6 mg Documented By: BRITTANY Morphine Sulfate (Morphine Sulfate 2 Mg/Ml Cartridge) 4 mg IVPUSH Q4H PRN; Protocol PRN Reason: Pain, Severe (Pain Scale 7-10) Last Admin: 01/07/25 20:53 Dose: 4 mg Documented By: BRITTANY Naloxone HCl (Naloxone Hcl 0.4 Mg/Ml Vial) 0.4 mg SUBCUT Q2M PRN PRN Reason: Opiate Reversal Omeprazole (Omeprazole 20 Mg Capsule.Dr) 20 mg PO DAILY@0630 [facility] Last Admin: 01/08/25 06:31 Dose: 20 mg Documented By: BRITTANY Ondansetron HCl (Ondansetron Hcl 4 Mg/2 Ml Vial) 4 mg IVPUSH Q8H PRN PRN Reason: Nausea and Vomiting Last Admin: 01/07/25 20:53 Dose: 4 mg Documented By: BRITTANY Oxycodone HCl (Oxycodone Hcl Immed Release 5 Mg Tablet) 5 mg PO Q4H PRN PRN Reason: Pain, Moderate(Pain Scale 4-6) Last Admin: 01/07/25 14:41 Dose: 5 mg Documented By: FUENTES Polyethylene Glycol (Polyethylene Glycol 3350 17 Gm Powd.Pack) 17 gm PO DAILY [facility] Last Admin: 01/08/25 08:11 Dose: 17 gm Documented By: FUENTES Simethicone (Simethicone 80 Mg Tab.Chew) 80 mg PO Q6H PRN PRN Reason: gas Last Admin: 01/07/25 20:54 Dose: 80 mg Documented By: BRITTANY Sodium Chloride (0.9 % Sodium Chloride Flush 3 Ml Syringe) 3 ml IVFLUSH QSHIFT [facility] Last Admin: 01/08/25 06:55 Dose: Not Given Documented By: FUENTES Non-Admin Reason: Previously Administered Trazodone HCl (Trazodone Hcl 50 Mg Tablet) 50 mg PO BEDTIME [facility] Last Admin: 01/07/25 20:55 Dose: 50 mg Documented By: BRITTANY Labs 01/08/25 09:12 01/08/25 09:12 Labs: Laboratory Results - last 24 hr 01/06/25 01/08/25 14:44 09:12 MCV 102.1 H MCH 29.4 MCHC 28.8 L RDW 22.5 H Plt Count 51 L MPV Not Reportable Immature Gran % (Auto) Cancelled Neut % (Auto) Cancelled Lymph % (Auto) Cancelled [place] % (Auto) Cancelled Eos % (Auto) Cancelled Baso % (Auto) Cancelled Lymph # (Auto) Cancelled [place] # (Auto) Cancelled Eos # (Auto) Cancelled Baso # (Auto) Cancelled Abs Immat Gran (auto) Cancelled Absolute Neuts (auto) Cancelled Absolute Nucleated RBC 1.470 H Nucleated RBC % (auto) 8.5 H Neutrophils % (Manual) 77 H Band Neutrophils % 1 L Lymphocytes % (Manual) 5 L Monocytes % (Manual) 9 Basophils % (Manual) 1 Metamyelocytes % 1 Blast Cells % (Manual) 6 Abs Neuts (Manual) 13.5 H Lymphocytes # (Manual) 0.9 L Monocytes # (Manual) 1.6 H Basophils # (Manual) 0.2 Metamyelocytes # 0.2 Blast Cells # 1.0 Nucleated RBCs 6 H Hypersegmented Neuts PRESENT Platelet Estimate DECREASED Large Platelets PRESENT Plt Morphology Comment NOTED RBC Morphology NOTED Macrocytosis 1+ (5-14) Tear Drop Cells 1+ (0-2) Ovalocytes 1+ (5-14) Karen Cells 1+ (0-2) Anion Gap 28 H Estim Creat Clear Calc 46.5 Estimated GFR 59 Random Glucose 99 Calcium 6.4 L D Blood Type O Negative Antibody Screen NEGATIVE Crossmatch See Detail Microbiology Microbiology Results: Microbiology 01/06/25 16:15 Gram Stain - Final Leg - Left Routine Culture - Preliminary Gram negative adarsh 01/06/25 16:14 Blood Culture - Preliminary Blood - Venous No growth after 24 hours. 01/06/25 16:13 Blood Culture - Preliminary Blood - Venous No growth after 24 hours. 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 Acute cholecystitis Not septic seen in CT Abd\pelvis Elevated WBCs, ESR and CRP [facility] , cholecystectomy is recommended however as he was currently asymptomatic, surgery could be postponed until he was more medically stable. 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
[2025-01-08] MEDS: Dextrose 5 % 1,000 ML 100 ML IVCONT (13:58)
--- NOTE | 2025-01-08 16:02 | PC.NURSE ---
Pt with chronic wound to RLL. Old DSG removed. Noted small amount of serosang drainage present to old dressing. No active drainage at this time. Wound bed in meaty. No sxs infection noted. Wound cleanse with NS and with a gentle pat dry of sterile gauze. Nonadherent pad applied to wound bed followed by ABD pad and secured with gauze wrap. Pt tolerated DSG change well.
[2025-01-08 16:33] LABS: Anion Gap 8 (12-20); Blood Urea Nitrogen 42 mg/dL (9-16); Calcium 6.1 mg/dL (8.4-10.2); Carbon Dioxide 16 mmol/L (22-29); Chloride 89 mmol/L (96-108); Creatinine Clr Calc Pharmacy 36.8; Estimated Glomerular Filt Rate 45; Potassium 3.9 mmol/L (3.3-5.1); Sodium 109 mmol/L (135-145)
--- NOTE | 2025-01-08 16:48 | PC.NURSE ---
Notified of critical lab: Sodium 109. Spoke with Dr. Brizuela. Advised that Pt is alert, oriented, NAD, and with family at bedside. Orders to have lab re-drawn. Pt with D5W running to IV access on LUE. Per Dr. Brizuela, lab to be drawn on RUE. Verbal report given to phlebotomy staff upon arrival to unit that lab to be drawn from RUE. Pt has no IVF or medications running on RUE at this time.
[2025-01-08 17:42] LABS: Sodium 134 mmol/L (135-145)
[2025-01-08 17:43] LABS: Anion Gap 16 (12-20); Blood Urea Nitrogen 51 mg/dL (9-16); Calcium 7.5 mg/dL (8.4-10.2); Carbon Dioxide 16 mmol/L (22-29); Chloride 108 mmol/L (96-108); Creatinine Clr Calc Pharmacy 39.5; Estimated Glomerular Filt Rate 49; Glucose Random 104 mg/dL (60-115)
[2025-01-08 17:51] LABS: Potassium 5.6 mmol/L (3.3-5.1)
[2025-01-08 17:54] LABS: Glucose Random 859 mg/dL (60-115)
--- NOTE | 2025-01-08 18:07 | PC.NURSE ---
Re-draw of labs shows sodium 134. Chemistry calls to report a critical glucose of 859, however this was from the blood draw obtained from limb with D5W running. Re-draw lab shows glucose 104. All values reported to Dr. Brizuela via [facility]. Call received from Dr. Brizuela ordering d/c of D5W at this time. Fluids ended as ordered.
--- NOTE | 2025-01-08 18:13 | P.EN_ITS ---
Event Note Date of Service: 01/08/25 Event Note: Nursing called stating patient had a sodium of 109 at 16:00. Staff queried and noted fusing furnace loader juancho off arm that the D5 was running. Redraw demonstrated a sodium of 134. D5W DC. Redraw lytes in a.m. Time Spent With Patient Time: Total time managing care of this patient today ____ minutes.
[2025-01-08] MEDS: traZODone HCL 50 MG TABLET PO (20:52)
[2025-01-08] MEDS: Melatonin 3 MG TABLET 6 MG PO (20:52)
[2025-01-08] MEDS: Morphine Sulfate 2 MG/ML CARTRIDGE 4 MG IVPUSH (20:53)
[2025-01-08] MEDS: Simethicone 80 MG TAB.CHEW PO (20:53)
--- NOTE | 2025-01-08 21:12 | PC.NURSE ---
lactulose held due to multiple watery bowel movements
[2025-01-08 22:28] LABS: Anion Gap 12 (12-20); Blood Urea Nitrogen 49 mg/dL (9-16); Calcium 7.3 mg/dL (8.4-10.2); Carbon Dioxide 19 mmol/L (22-29); Chloride 108 mmol/L (96-108); Creatinine Clr Calc Pharmacy 37.3; Estimated Glomerular Filt Rate 46; Glucose Random 114 mg/dL (60-115); Potassium 4.9 mmol/L (3.3-5.1); Sodium 134 mmol/L (135-145)
[2025-01-09] VITALS (9 sets, daily range): BP systolic 101–132; BP diastolic 54–60; PULSE 72–82; RESP 15–18; TEMP 36.2–37.1; O2SAT 91–97; BMI 24.3
[2025-01-09] MEDS: Piperacillin Sodium/Tazobactam 3.375 GM in 0.9 % Sodium Chloride 50 ML IV ×4 (03:01→20:39)
[2025-01-09] MEDS: 0.9 % Sodium Chloride Flush 3 ML SYRINGE IVFLUSH ×3 (03:01→20:40)
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
[2025-01-09 05:22] LABS: Hemoglobin 7.8 g/dl (14.0-18.0); Mean Corpuscular Hemoglobin 29.7 pg (27.0-33.0); Mean Corpuscular Volume 98.9 fL (80.0-98.0); Mean Platelet Volume 13.5 fL (9.4-12.4); PLT CLUMP 1; Red Blood Count 2.63 X10*6/uL (4.60-5.80)
[2025-01-09 05:28] LABS: Anion Gap 11 (12-20); Blood Urea Nitrogen 46 mg/dL (9-16); Calcium 7.4 mg/dL (8.4-10.2); Carbon Dioxide 19 mmol/L (22-29); Chloride 109 mmol/L (96-108); Creatinine Clr Calc Pharmacy 43.2; Estimated Glomerular Filt Rate 54; Glucose Random 79 mg/dL (60-115); Potassium 4.4 mmol/L (3.3-5.1); Sodium 135 mmol/L (135-145)
[2025-01-09 05:42] LABS: White Blood Count 17.9 X10*3/uL (4.8-10.8)
[2025-01-09 05:57] LABS: Atypical Lymph Absolute Manual 0.4 x10*3/uL; Atypical Lymphs Percent Manual 2 % (0-6); Band Neutrophils Percent 2 % (3-5); Blast Percent 6 %; Blastocytes Absolute 1.1 X10*3/uL; Lymphocytes Absolute Manual 0.9 X10*3/uL (1.2-4.9); Lymphocytes Percent Manual 5 % (20-40); Metamyelocytes Absolute 0.2 X10*3/uL; Metamyelocytes Percent 1 %; Monocytes Absolute Manual 1.1 X10*3/uL (0.1-1.2); Monocytes Percent Manual 6 % (2-11); Neutrophils Absolute Manual 14.3 X10*3/uL (2.0-8.3); Neutrophils Percent Manual 78 % (45-73); Nucleated Red Blood Cells 9 /100WBC (0-0); RBC Morphology NOTED
[2025-01-09 05:58] LABS: Macrocytosis 2+ (15-30) /OIF; Platelet Estimate DECREASED (NORMAL)
[2025-01-09 05:59] LABS: Acanthocytes 1+ (0-2) /OIF; Large Platelet PRESENT; Platelet Morphology Comment NOTED
[2025-01-09 06:00] LABS: Burr Cells 2+ (3-5) /OIF; Hypochromasia 1+ (5-14) /OIF; Polychromasia 1+ (0-2) /OIF; Tear Drop Cells 2+ (3-5) /OIF; Toxic Vacuolation PRESENT
[2025-01-09 06:01] LABS: Ovalocytes 1+ (5-14) /OIF; Platelet Count 47 X10*3/uL (160-400)
[2025-01-09] MEDS: Omeprazole 20 MG CAPSULE.DR PO (06:03)
[2025-01-09] MEDS: Escitalopram Oxalate 10 MG TABLET PO (09:26)
[2025-01-09] MEDS: amLODIPine Besylate 5 MG TABLET PO (09:26)
--- NOTE | 2025-01-09 10:22 | PC.NURSE ---
Pt up to the floor, plan PT consult, no c/o pain, no resp distress, IV ABX infused and tolerated. Call [place] within reach.
--- NOTE | 2025-01-09 10:27 | HO.PM.IMPN ---
Subjective Subjective Date of Service: 01/09/25 Interval History: seen and evaluated this morning improved abdominal pain and tolerance to diet WBCs down to 17K feels better Hb improved to 7.8 after trnasfusion no other overnight events Review of Systems Review of Systems: Yes all other systems are reviewed and are negative Physical Exam Vital Signs: Vital Signs: Last Vital Signs Temp 97.9 F 01/09/25 09:59 Pulse 73 01/09/25 09:59 Resp 16 01/09/25 09:59 BP 102/55 L 01/09/25 09:59 Pulse Ox 95 01/09/25 09:59 O2 Del Method Nasal Cannula 01/09/25 09:59 O2 Flow Rate 2.0 01/09/25 09:59 BMI result Body Mass Index 24.3 Const: Other: Constitutional : Awake, interactive, frail looking, not in distress Neck : Normal inspection, Supple Cardiovascular : RRR, no JVP, no lower extremity edema Respiratory : good bilateral air entry, no crackles, wheezes or rhonchi Gastrointestinal: soft, lax, Normal bowel sounds, no significant tenderness Skin : Warm, Dry, large open wound in RLE with granulation tissue, no warmth, drainage or erythema Neurological : Alert & oriented x3, No focal deficit Objective Data Active Medications Acetaminophen (Acetaminophen 325 Mg Tablet) 650 mg PO Q6H PRN PRN Reason: Pain, Mild 1-3,fever,headache Last Admin: 01/07/25 10:49 Dose: 650 mg Documented By: FUENTES Amlodipine Besylate (Amlodipine Besylate 5 Mg Tablet) 5 mg PO DAILY [facility]; Protocol Last Admin: 01/09/25 09:26 Dose: 5 mg Documented By: SHAWN Bisacodyl (Bisacodyl 10 Mg Supp.Rect) 10 mg [place] DAILY PRN PRN Reason: Constipation Calcium Carbonate (Calcium Carbonate 750 Mg Tab.Chew) 750 mg PO Q4H PRN PRN Reason: Heartburn Last Admin: 01/07/25 12:51 Dose: 750 mg Documented By: FUENTES Escitalopram Oxalate (Escitalopram Oxalate 10 Mg Tablet) 10 mg PO DAILY [facility] Last Admin: 01/09/25 09:26 Dose: 10 mg Documented By: SHAWN Piperacillin Sod/Tazobactam (Sod 3.375 gm/ Sodium Chloride) 50 mls @ 100 mls/hr IV Q6H [facility] Last Infusion: 01/09/25 10:21 Dose: Infused Documented By: ADAM Lactulose (Lactulose 20 Gm/30 Ml Solution) 20 gm PO BID [facility] Last Admin: 01/09/25 09:34 Dose: Not Given Documented By: SHAWN Non-Admin Reason: per report had loose stools. Magnesium Hydroxide (Milk Of Magnesia 30 Ml Oral.Susp) 30 ml PO DAILY PRN PRN Reason: Constipation Last Admin: 01/07/25 14:41 Dose: 30 ml Documented By: FUENTES Magnesium Hydroxide (Milk Of Magnesia 30 Ml Oral.Susp) 30 ml PO BEDTIME PRN PRN Reason: Constipation Last Admin: 01/07/25 20:59 Dose: 30 ml Documented By: BRITTANY Melatonin (Melatonin 3 Mg Tablet) 6 mg PO BEDTIME PRN PRN Reason: Insomnia Last Admin: 01/08/25 20:52 Dose: 6 mg Documented By: BRITTANY Morphine Sulfate (Morphine Sulfate 2 Mg/Ml Cartridge) 4 mg IVPUSH Q4H PRN; Protocol PRN Reason: Pain, Severe (Pain Scale 7-10) Last Admin: 01/08/25 20:53 Dose: 4 mg Documented By: BRITTANY Naloxone HCl (Naloxone Hcl 0.4 Mg/Ml Vial) 0.4 mg SUBCUT Q2M PRN PRN Reason: Opiate Reversal Omeprazole (Omeprazole 20 Mg Capsule.Dr) 20 mg PO DAILY@0630 [facility] Last Admin: 01/09/25 06:03 Dose: 20 mg Documented By: ELEN Ondansetron HCl (Ondansetron Hcl 4 Mg/2 Ml Vial) 4 mg IVPUSH Q8H PRN PRN Reason: Nausea and Vomiting Last Admin: 01/07/25 20:53 Dose: 4 mg Documented By: BRITTANY Oxycodone HCl (Oxycodone Hcl Immed Release 5 Mg Tablet) 5 mg PO Q4H PRN PRN Reason: Pain, Moderate(Pain Scale 4-6) Last Admin: 01/07/25 14:41 Dose: 5 mg Documented By: FUENTES Polyethylene Glycol (Polyethylene Glycol 3350 17 Gm Powd.Pack) 17 gm PO DAILY [facility] Last Admin: 01/09/25 09:34 Dose: Not Given Documented By: SHAWN Non-Admin Reason: per report pt had loose stools. Simethicone (Simethicone 80 Mg Tab.Chew) 80 mg PO Q6H PRN PRN Reason: gas Last Admin: 01/08/25 20:53 Dose: 80 mg Documented By: BRITTANY Sodium Chloride (0.9 % Sodium Chloride Flush 3 Ml Syringe) 3 ml IVFLUSH QSHIFT LISA Last Admin: 01/09/25 09:26 Dose: 3 ml Documented By: SHWAN Trazodone HCl (Trazodone Hcl 50 Mg Tablet) 50 mg PO BEDTIME LISA Last Admin: 01/08/25 20:52 Dose: 50 mg Documented By: BRITTANY Labs 01/09/25 03:23 01/09/25 03:23 Labs: Laboratory Results - last 24 hr 01/06/25 01/07/25 01/08/25 14:44 06:17 09:12 MCV MCH MCHC RDW Plt Count 51 L MPV Immature Gran % (Auto) Neut % (Auto) Lymph % (Auto) [place] % (Auto) Eos % (Auto) Baso % (Auto) Lymph # (Auto) [place] # (Auto) Eos # (Auto) Baso # (Auto) Abs Immat Gran (auto) Absolute Neuts (auto) Absolute Nucleated RBC Nucleated RBC % (auto) 8.5 H Neutrophils % (Manual) 77 H Band Neutrophils % 1 L Lymphocytes % (Manual) 5 L Atypical Lymphs % (Man) Monocytes % (Manual) 9 Basophils % (Manual) 1 Metamyelocytes % 1 Blast Cells % (Manual) 6 Abs Neuts (Manual) 13.5 H Lymphocytes # (Manual) 0.9 L Atyp Lymphs # (Manual) Monocytes # (Manual) 1.6 H Basophils # (Manual) 0.2 Metamyelocytes # 0.2 Blast Cells # 1.0 Nucleated RBCs 6 H Hypersegmented Neuts PRESENT Toxic Vacuolation Platelet Estimate DECREASED Large Platelets PRESENT Plt Morphology Comment NOTED RBC Morphology NOTED Polychromasia Hypochromasia Macrocytosis 1+ (5-14) Tear Drop Cells 1+ (0-2) Ovalocytes 1+ (5-14) Karen Cells 1+ (0-2) Acanthocytes (Spur) Smear Path Review SEE NOTE Anion Gap 28 H Estim Creat Clear Calc 46.5 Estimated GFR 59 Random Glucose 99 Calcium 6.4 L D Blood Type O Negative Antibody Screen NEGATIVE Crossmatch See Detail 01/08/25 01/08/25 01/08/25 16:02 16:58 22:08 MCV MCH MCHC RDW Plt Count MPV Immature Gran % (Auto) Neut % (Auto) Lymph % (Auto) [place] % (Auto) Eos % (Auto) Baso % (Auto) Lymph # (Auto) [place] # (Auto) Eos # (Auto) Baso # (Auto) Abs Immat Gran (auto) Absolute Neuts (auto) Absolute Nucleated RBC Nucleated RBC % (auto) Neutrophils % (Manual) Band Neutrophils % Lymphocytes % (Manual) Atypical Lymphs % (Man) Monocytes % (Manual) Basophils % (Manual) Metamyelocytes % Blast Cells % (Manual) Abs Neuts (Manual) Lymphocytes # (Manual) Atyp Lymphs # (Manual) Monocytes # (Manual) Basophils # (Manual) Metamyelocytes # Blast Cells # Nucleated RBCs Hypersegmented Neuts Toxic Vacuolation Platelet Estimate Large Platelets Plt Morphology Comment RBC Morphology Polychromasia Hypochromasia Macrocytosis Tear Drop Cells Ovalocytes [place] Cells Acanthocytes (Spur) Smear Path Review Anion Gap 8 L 16 12 Estim Creat Clear Calc 36.8 39.5 37.3 Estimated GFR 45 49 46 Random Glucose 859 H* 104 114 Calcium 6.1 L 7.5 L D 7.3 L Blood Type Antibody Screen Crossmatch 01/09/25 03:23 MCV 98.9 H MCH 29.7 MCHC 30.0 L RDW 22.0 H Plt Count 47 L MPV 13.5 H Immature Gran % (Auto) Cancelled Neut % (Auto) Cancelled Lymph % (Auto) Cancelled [place] % (Auto) Cancelled Eos % (Auto) Cancelled Baso % (Auto) Cancelled Lymph # (Auto) Cancelled [place] # (Auto) Cancelled Eos # (Auto) Cancelled Baso # (Auto) Cancelled Abs Immat Gran (auto) Cancelled Absolute Neuts (auto) Cancelled Absolute Nucleated RBC 1.430 H Nucleated RBC % (auto) 8.0 H Neutrophils % (Manual) 78 H Band Neutrophils % 2 L Lymphocytes % (Manual) 5 L Atypical Lymphs % (Man) 2 Monocytes % (Manual) 6 Basophils % (Manual) Metamyelocytes % 1 Blast Cells % (Manual) 6 Abs Neuts (Manual) 14.3 H Lymphocytes # (Manual) 0.9 L Atyp Lymphs # (Manual) 0.4 Monocytes # (Manual) 1.1 Basophils # (Manual) Metamyelocytes # 0.2 Blast Cells # 1.1 Nucleated RBCs 9 H Hypersegmented Neuts Toxic Vacuolation PRESENT Platelet Estimate DECREASED Large Platelets PRESENT Plt Morphology Comment NOTED RBC Morphology NOTED Polychromasia 1+ (0-2) Hypochromasia 1+ (5-14) Macrocytosis 2+ (15-30) Tear Drop Cells 2+ (3-5) Ovalocytes 1+ (5-14) [place] Cells 2+ (3-5) Acanthocytes (Spur) 1+ (0-2) Smear Path Review Anion Gap 11 L Estim Creat Clear Calc 43.2 Estimated GFR 54 Random Glucose 79 Calcium 7.4 L Blood Type Antibody Screen Crossmatch Microbiology Microbiology Results: Microbiology 01/06/25 16:15 Gram Stain - Final Leg - Left Routine Culture - Final Pseudomonas aeruginosa Escherichia coli 01/06/25 16:14 Blood Culture - Preliminary Blood - Venous No growth after 48 hours. 01/06/25 16:13 Blood Culture - Preliminary Blood - Venous No growth after 48 hours. 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 Acute cholecystitis Not septic seen in CT Abd\pelvis Continue Zosyn Surgery consult , cholecystectomy is recommended however as he was currently asymptomatic, surgery could be postponed until he was more medically stable. As an alternative, IR cholecystostomy could be performed if his symptoms seemed to worsen Acute on chronic symptomatic anemia in MDS Improved to 7.8 after 2nd unit PRBCs Elevated WBCs, ESR and CRP Blast 6% Oncology follow up follow H&H Acute hypernatremia resolved. 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
--- NOTE | 2025-01-09 11:13 | MHC.CM.PN ---
Addendum entered by Hattie Cruz 01/09/25 12:44: A request for [facility] auth has been made for [facility]. Clinical [facility] to the [facility]. The [facility] will also provide transport to the [facility]. Original Note: PT eval has been done. STR is recommended. Patient is from [facility]. A clinical update has been sent to the STR. DP is to return to [facility] via BLS.
--- NOTE | 2025-01-09 11:15 | PC.NURSE ---
no morphine available in overflow, texted to inpatient unit that pain 05/28 and no med available.
--- NOTE | 2025-01-09 12:01 | MHC.CLN ---
NUTRITION PATIENT WITH CHRONIC, LARGE OPEN WOUND RIGHT LOWER EXTREMITY. NOT DESCRIBED PRESSURE INJURY. LIBERALIZED DIET FROM LOWFAT TO REGULAR TO PROMOTE PO INTAKE. PER MD, ENSURE TID. SUPPLEMENT PROVIDES 1050 KCALS, 60 G PROTEIN. SUPPLEMENT MAY PROMOTE SKIN INTEGRITY. NO ADDITIONAL NUTRITION INTERVENTIONS AT THIS TIME.
--- NOTE | 2025-01-09 12:21 | HO.WOUND ---
Wound Consult: Initial 79yr old?male admitted to [facility] on 01/06/25 - See progress notes and H&P for detailed history.? Wound consult placed for Right Lower Lateral Leg.? Patient agreeable to assessment and photo documentation.? Patient reports he treated with out pt wound clinci Dr. Galarza out of [facility]. He reports he has follow up scheduled with Dr. Galarza and Plastic surgery Dr. Crawford for Skin graft evaluation. Recommend continued follow up out pt with his providers. right Lower Lateral Leg Etiology: ??Venous wound with history of Skin CA - Present on Admission Measurements: 9cm x 7cm x 0.4cm Wound Bed: marbled wound bed with dark red moist and yellow slough Drainage / Odor: marie small amount Edges: ? unattached Charisma wound: ? Venous dermatitis - hemosidering staining - swelling noted - Tubi orthotist or prosthetist in use down to toes - No Induration, Fluctuance or Warmth noted Pain: tenderness reported Goals of Treatment: ? Elevate lower leg - continued follow up outpt with personal providers and Justin ARROYO for mmoisture management Recommendations: 1. Turn and Reposition every 2 hours and as needed for patient comfort.? Use pillows or wedges to support off loading positions. 2. Off Load all bony prominences with use of pillows and heel boots if needed.? Apply Preventative foams where needed. ? 3. Monitor for incontinence and moisture control, use barrier creams when needed for prevention and treatment. 4. Provide adequate and supplemental nutrition.? 5. Order low air loss mattress. 6. When applicable maintain blood glucose levels per Providers order. 7. Right Lower Lateral Leg - Elevate lower leg and heel off of bed surface with pillows. Cleanse with NS moist gauze, pat dry. Apply skin prep to periwound, apply Durafiber AG to wound bed cover with dry gauze, ABD pad and wrap. Reapply Tibu Kennel Operator. Re-consult wound care Nurse for wound deterioration or wound changes.
[2025-01-09 12:54] LABS: Neutrophils Absolute Manual 23.8 X10*3/uL (2.0-8.3); Neutrophils Percent Manual 75 % (45-73)
[2025-01-09 12:55] LABS: Atypical Lymphs Percent Manual 0 % (0-6); Lymphocytes Absolute Manual 0.9 X10*3/uL (1.2-4.9); Lymphocytes Percent Manual 3 % (20-40)
[2025-01-09 12:56] LABS: Monocytes Absolute Manual 2.2 X10*3/uL (0.1-1.2); Monocytes Percent Manual 7 % (2-11)
[2025-01-09 12:57] LABS: Basophils Percent Manual 0 % (0-2); Metamyelocytes Percent 2 %
[2025-01-09 12:58] LABS: Metamyelocytes Absolute 0.6 X10*3/uL; Myelocytes Absolute 0.6 X10*/uL; Myelocytes Percent 2 %
[2025-01-09 12:59] LABS: Blast Percent 9 %; Blastocytes Absolute 2.8 X10*3/uL
[2025-01-09] MEDS: Morphine Sulfate 2 MG/ML CARTRIDGE 4 MG IVPUSH (14:19)
[2025-01-09] MEDS: Lactulose 20 GM/30 ML SOLUTION PO (20:39)
[2025-01-09] MEDS: traZODone HCL 50 MG TABLET PO (20:39)
[2025-01-10] MEDS: Piperacillin Sodium/Tazobactam 3.375 GM in 0.9 % Sodium Chloride 50 ML IV ×4 (02:57→20:57)
[2025-01-10 03:16] VITALS: BP 123/60; PULSE 81; RESP 16; TEMP 36.3; O2SAT 93
[2025-01-10 06:04] LABS: Hematocrit 28.2 % (42.0-52.0); Hemoglobin 8.1 g/dl (14.0-18.0); Mean Corpuscular HGB Conc 28.7 g/dl (31.0-36.0); Mean Corpuscular Hemoglobin 29.1 pg (27.0-33.0); Mean Corpuscular Volume 101.4 fL (80.0-98.0); Mean Platelet Volume 12.3 fL (9.4-12.4); Red Blood Count 2.78 X10*6/uL (4.60-5.80); Red Cell Distribution Width 22.8 % (11.0-16.0)
[2025-01-10 06:10] LABS: Anion Gap 10 (12-20); Blood Urea Nitrogen 41 mg/dL (9-16); Calcium 7.6 mg/dL (8.4-10.2); Carbon Dioxide 20 mmol/L (22-29); Chloride 113 mmol/L (96-108); Creatinine Clr Calc Pharmacy 51.7; Estimated Glomerular Filt Rate 55; Glucose Random 82 mg/dL (60-115); Potassium 4.4 mmol/L (3.3-5.1); Sodium 139 mmol/L (135-145)
[2025-01-10] MEDS: Omeprazole 20 MG CAPSULE.DR PO (06:11)
[2025-01-10 06:18] LABS: NRBC Pct Auto 12.6 /100WBC (0.0-0.2); Platelet Count 40 X10*3/uL (160-400)
[2025-01-10 06:29] LABS: Atypical Lymph Absolute Manual 0.4 x10*3/uL; Atypical Lymphs Percent Manual 2 % (0-6); Band Neutrophils Percent 2 % (3-5); Blast Percent 8 %; Blastocytes Absolute 1.4 X10*3/uL; Lymphocytes Absolute Manual 2.7 X10*3/uL (1.2-4.9); Lymphocytes Percent Manual 15 % (20-40); Monocytes Absolute Manual 0.9 X10*3/uL (0.1-1.2); Monocytes Percent Manual 5 % (2-11); Neutrophils Absolute Manual 12.6 X10*3/uL (2.0-8.3); Neutrophils Percent Manual 68 % (45-73); Nucleated Red Blood Cells 9 /100WBC (0-0)
[2025-01-10 06:31] LABS: Macrocytosis 1+ (5-14) /OIF; RBC Morphology NOTED
[2025-01-10 06:32] LABS: Acanthocytes 1+ (0-2) /OIF; Ovalocytes 1+ (5-14) /OIF; Polychromasia 2+ (3-5) /OIF; Schistocytes 1+ (0-2) /OIF; Stomatocytes 1+ (5-14) /OIF
[2025-01-10 06:33] LABS: Giant Platelet PRESENT; Large Platelet PRESENT; Platelet Estimate DECREASED (NORMAL); Platelet Morphology Comment NOTED
[2025-01-10 07:58] VITALS: BP 127/58; PULSE 77; RESP 16; TEMP 36.4; O2SAT 93
[2025-01-10] MEDS: 0.9 % Sodium Chloride Flush 3 ML SYRINGE IVFLUSH ×3 (07:58→20:57)
[2025-01-10] MEDS: amLODIPine Besylate 5 MG TABLET PO (07:59)
[2025-01-10] MEDS: Escitalopram Oxalate 10 MG TABLET PO (07:59)
--- NOTE | 2025-01-10 08:00 | PM.PNGS ---
Subjective Subjective Date of Service: 01/10/25 Interval history: Denies abdominal pain, nausea or vomiting. Reports a large bowel movement today. Physical Exam Vital Signs: Vital Signs: Last Vital Signs Temp 97.5 F 01/10/25 07:58 Pulse 77 01/10/25 07:58 Resp 16 01/10/25 07:58 BP 127/58 L 01/10/25 07:58 Pulse Ox 93 01/10/25 07:58 O2 Del Method Room Air 01/10/25 07:58 O2 Flow Rate 2.0 01/09/25 12:00 BMI result Body Mass Index 24.3 Const: General: comfortable Nutritional Appearance: well nourished Orientation/consciousness: patient oriented x3 Resp: Effort & Inspection: normal respiratory effort GI: Other: Soft, nondistended, nontender to deep palpation, negative Mejia sign, no rebound, guarding or rigidity. Skin: Other: Warm, dry, no jaundice Neuro: General: patient oriented x3 Objective Data Active Medications Acetaminophen (Acetaminophen 325 Mg Tablet) 650 mg PO Q6H PRN PRN Reason: Pain, Mild 1-3,fever,headache Last Admin: 01/07/25 10:49 Dose: 650 mg Documented By: FUENTES Amlodipine Besylate (Amlodipine Besylate 5 Mg Tablet) 5 mg PO DAILY [facility]; Protocol Last Admin: 01/10/25 07:59 Dose: 5 mg Documented By: ADAM Bisacodyl (Bisacodyl 10 Mg Supp.Rect) 10 mg [place] DAILY PRN PRN Reason: Constipation Calcium Carbonate (Calcium Carbonate 750 Mg Tab.Chew) 750 mg PO Q4H PRN PRN Reason: Heartburn Last Admin: 01/07/25 12:51 Dose: 750 mg Documented By: FUENTES Escitalopram Oxalate (Escitalopram Oxalate 10 Mg Tablet) 10 mg PO DAILY [facility] Last Admin: 01/10/25 07:59 Dose: 10 mg Documented By: ADAM Piperacillin Sod/Tazobactam (Sod 3.375 gm/ Sodium Chloride) 50 mls @ 100 mls/hr IV Q6H [facility] Last Admin: 01/10/25 07:59 Dose: 100 mls/hr Documented By: ADAM Lactulose (Lactulose 20 Gm/30 Ml Solution) 20 gm PO BID [facility] Last Admin: 01/10/25 07:52 Dose: Not Given Documented By: ADAM Non-Admin Reason: Patient Refused Magnesium Hydroxide (Milk Of Magnesia 30 Ml Oral.Susp) 30 ml PO DAILY PRN PRN Reason: Constipation Last Admin: 01/07/25 14:41 Dose: 30 ml Documented By: FUENTES Magnesium Hydroxide (Milk Of Magnesia 30 Ml Oral.Susp) 30 ml PO BEDTIME PRN PRN Reason: Constipation Last Admin: 01/07/25 20:59 Dose: 30 ml Documented By: BRITTANY Melatonin (Melatonin 3 Mg Tablet) 6 mg PO BEDTIME PRN PRN Reason: Insomnia Last Admin: 01/08/25 20:52 Dose: 6 mg Documented By: BRITTANY Morphine Sulfate (Morphine Sulfate 2 Mg/Ml Cartridge) 4 mg IVPUSH Q4H PRN; Protocol PRN Reason: Pain, Severe (Pain Scale 7-10) Last Admin: 01/09/25 14:19 Dose: 4 mg Documented By: QUITA Naloxone HCl (Naloxone Hcl 0.4 Mg/Ml Vial) 0.4 mg SUBCUT Q2M PRN PRN Reason: Opiate Reversal Omeprazole (Omeprazole 20 Mg Capsule.Dr) 20 mg PO DAILY@0630 [facility] Last Admin: 01/10/25 06:11 Dose: 20 mg Documented By: MARTINEZ Ondansetron HCl (Ondansetron Hcl 4 Mg/2 Ml Vial) 4 mg IVPUSH Q8H PRN PRN Reason: Nausea and Vomiting Last Admin: 01/07/25 20:53 Dose: 4 mg Documented By: BRITTANY Oxycodone HCl (Oxycodone Hcl Immed Release 5 Mg Tablet) 5 mg PO Q4H PRN PRN Reason: Pain, Moderate(Pain Scale 4-6) Last Admin: 01/07/25 14:41 Dose: 5 mg Documented By: FUENTES Polyethylene Glycol (Polyethylene Glycol 3350 17 Gm Powd.Pack) 17 gm PO DAILY [facility] Last Admin: 01/10/25 07:52 Dose: Not Given Documented By: ADAM Non-Admin Reason: Patient Refused Simethicone (Simethicone 80 Mg Tab.Chew) 80 mg PO Q6H PRN PRN Reason: gas Last Admin: 01/08/25 20:53 Dose: 80 mg Documented By: BRITTANY Sodium Chloride (0.9 % Sodium Chloride Flush 3 Ml Syringe) 3 ml IVFLUSH QSHIFT [facility] Last Admin: 01/10/25 07:58 Dose: 3 ml Documented By: ADAM Trazodone HCl (Trazodone Hcl 50 Mg Tablet) 50 mg PO BEDTIME [facility] Last Admin: 01/09/25 20:39 Dose: 50 mg Documented By: MATHEUSK Labs 01/10/25 05:44 01/10/25 05:44 Labs: Laboratory Results - last 24 hr 01/07/25 01/10/25 06:17 05:44 MCV 101.4 H MCH 29.1 MCHC 28.7 L RDW 22.8 H Plt Count 40 L MPV 12.3 Immature Gran % (Auto) Cancelled Neut % (Auto) Cancelled Lymph % (Auto) Cancelled [place] % (Auto) Cancelled Eos % (Auto) Cancelled Baso % (Auto) Cancelled Lymph # (Auto) Cancelled [place] # (Auto) Cancelled Eos # (Auto) Cancelled Baso # (Auto) Cancelled Abs Immat Gran (auto) Cancelled Absolute Neuts (auto) Cancelled Absolute Nucleated RBC 2.270 H Nucleated RBC % (auto) 12.6 H Neutrophils % (Manual) 75 H 68 Band Neutrophils % 2 L Lymphocytes % (Manual) 3 L 15 L Atypical Lymphs % (Man) 0 2 Monocytes % (Manual) 7 5 Basophils % (Manual) 0 Metamyelocytes % 2 Myelocytes % 2 Blast Cells % (Manual) 9 8 Abs Neuts (Manual) 23.8 H 12.6 H Lymphocytes # (Manual) 0.9 L 2.7 Atyp Lymphs # (Manual) [employer] REP 0.4 Monocytes # (Manual) 2.2 H 0.9 Basophils # (Manual) [employer] REP Metamyelocytes # 0.6 Myelocytes # 0.6 Blast Cells # 2.8 1.4 Nucleated RBCs 9 H Platelet Estimate DECREASED Large Platelets PRESENT Giant Platelets PRESENT Plt Morphology Comment NOTED RBC Morphology NOTED Polychromasia 2+ (3-5) Macrocytosis 1+ (5-14) Ovalocytes 1+ (5-14) Stomatocytes 1+ (5-14) Acanthocytes (Spur) 1+ (0-2) Schistocytes 1+ (0-2) Smear Path Review SEE NOTE Anion Gap 10 L Estim Creat Clear Calc 51.7 Estimated GFR 55 Random Glucose 82 Calcium 7.6 L Microbiology Microbiology Results: Microbiology 01/06/25 16:15 Gram Stain - Final Leg - Left Routine Culture - Final Pseudomonas aeruginosa Escherichia coli Procedures Date of Service Date of Service: 01/10/25 Progress Note: A&P Assessment and plan (1) Myelodysplastic syndrome: Status: Acute (2) Acute cholecystitis: Status: Acute Plan 79-year-old male patient with history of MDS found to have gallbladder wall thickening periportal edema by CT suggestive of acute cholecystitis. Patient is currently asymptomatic with a negative Mejia sign. Recommend obtaining a HIDA scan to clarify gallbladder function. If this is abnormal, we can proceed to laparoscopic or possible open cholecystectomy. Time Spent With Patient Time: Total time managing care of this patient today ____ minutes. Quality Stroke Does the patient have a stroke diagnosis?: No VTE Prior VTE?: No VTE Risk Level:: Medical - moderate - high VTE Device Contraindication: N/A - Device Ordered VTE Drug Contraindication: Treatment Not Indicated
--- NOTE | 2025-01-10 09:40 | MHC.CM.PN ---
Patient was planned for DC today. [facility] has received insurance auth. Per MD DC on hold. Patient is ordered a Hyda scan today. The SNF has been notified of the dc delay.
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
--- NOTE | 2025-01-10 11:57 | P.PNIM_ITS ---
Subjective Subjective Date of Service: 01/10/25 Interval History: seen and evaluated this morning improved abdominal pain and tolerance [place] [address] feels better overall Hb stable at 8.1 no other overnight events Review of Systems Review of Systems: Yes all other systems are reviewed and are negative Physical Exam 2 Vital Signs: Vital Signs: Last Vital Signs Temp 97.5 F 01/10/25 07:58 Pulse 77 01/10/25 07:58 Resp 16 01/10/25 07:58 BP 127/58 L 01/10/25 07:58 Pulse Ox 93 01/10/25 07:58 O2 Del Method Room Air 01/10/25 07:58 O2 Flow Rate 2.0 01/09/25 12:00 BMI result Body Mass Index 24.3 Const: Other: Constitutional : Awake, interactive, frail looking, not in distress Neck : Normal inspection, Supple Cardiovascular : RRR, no JVP, no lower extremity edema Respiratory : good bilateral air entry, no crackles, wheezes or rhonchi Gastrointestinal: soft, lax, Normal bowel sounds, no significant tenderness Skin : Warm, Dry, large open wound in RLE with granulation tissue, no warmth, drainage or erythema Neurological : Alert & oriented x3, No focal deficit Objective Data Active Medications Acetaminophen (Acetaminophen 325 Mg Tablet) 650 mg PO Q6H PRN PRN Reason: Pain, Mild 1-3,fever,headache Last Admin: 01/07/25 10:49 Dose: 650 mg Documented By: FUENTES Amlodipine Besylate (Amlodipine Besylate 5 Mg Tablet) 5 mg PO DAILY [facility]; Protocol Last Admin: 01/10/25 07:59 Dose: 5 mg Documented By: ADAM Bisacodyl (Bisacodyl 10 Mg Supp.Rect) 10 mg ID DAILY PRN PRN Reason: Constipation Calcium Carbonate (Calcium Carbonate 750 Mg Tab.Chew) 750 mg PO Q4H PRN PRN Reason: Heartburn Last Admin: 01/07/25 12:51 Dose: 750 mg Documented By: FUENTES Escitalopram Oxalate (Escitalopram Oxalate 10 Mg Tablet) 10 mg PO DAILY [facility] Last Admin: 01/10/25 07:59 Dose: 10 mg Documented By: ADAM Piperacillin Sod/Tazobactam (Sod 3.375 gm/ Sodium Chloride) 50 mls @ 100 mls/hr IV Q6H [facility] Last Infusion: 01/10/25 08:29 Dose: Infused Documented By: ADAM Lactulose (Lactulose 20 Gm/30 Ml Solution) 20 gm PO BID [facility] Last Admin: 01/10/25 07:52 Dose: Not Given Documented By: ADAM Non-Admin Reason: Patient Refused Magnesium Hydroxide (Milk Of Magnesia 30 Ml Oral.Susp) 30 ml PO DAILY PRN PRN Reason: Constipation Last Admin: 01/07/25 14:41 Dose: 30 ml Documented By: FUENTES Magnesium Hydroxide (Milk Of Magnesia 30 Ml Oral.Susp) 30 ml PO BEDTIME PRN PRN Reason: Constipation Last Admin: 01/07/25 20:59 Dose: 30 ml Documented By: BRITTANY Melatonin (Melatonin 3 Mg Tablet) 6 mg PO BEDTIME PRN PRN Reason: Insomnia Last Admin: 01/08/25 20:52 Dose: 6 mg Documented By: BRITTANY Morphine Sulfate (Morphine Sulfate 2 Mg/Ml Cartridge) 4 mg IVPUSH Q4H PRN; Protocol PRN Reason: Pain, Severe (Pain Scale 7-10) Last Admin: 01/09/25 14:19 Dose: 4 mg Documented By: QUITA Naloxone HCl (Naloxone Hcl 0.4 Mg/Ml Vial) 0.4 mg SUBCUT Q2M PRN PRN Reason: Opiate Reversal Omeprazole (Omeprazole 20 Mg Capsule.Dr) 20 mg PO DAILY@0630 [facility] Last Admin: 01/10/25 06:11 Dose: 20 mg Documented By: MARTINEZ Ondansetron HCl (Ondansetron Hcl 4 Mg/2 Ml Vial) 4 mg IVPUSH Q8H PRN PRN Reason: Nausea and Vomiting Last Admin: 01/07/25 20:53 Dose: 4 mg Documented By: BRITTANY Oxycodone HCl (Oxycodone Hcl Immed Release 5 Mg Tablet) 5 mg PO Q4H PRN PRN Reason: Pain, Moderate(Pain Scale 4-6) Last Admin: 01/07/25 14:41 Dose: 5 mg Documented By: FUENTES Polyethylene Glycol (Polyethylene Glycol 3350 17 Gm Powd.Pack) 17 gm PO DAILY [facility] Last Admin: 01/10/25 07:52 Dose: Not Given Documented By: ADAM Non-Admin Reason: Patient Refused Simethicone (Simethicone 80 Mg Tab.Chew) 80 mg PO Q6H PRN PRN Reason: gas Last Admin: 01/08/25 20:53 Dose: 80 mg Documented By: BRITTANY Sodium Chloride (0.9 % Sodium Chloride Flush 3 Ml Syringe) 3 ml IVFLUSH QSHIFT [facility] Last Admin: 01/10/25 07:58 Dose: 3 ml Documented By: ADAM Trazodone HCl (Trazodone Hcl 50 Mg Tablet) 50 mg PO BEDTIME [facility] Last Admin: 01/09/25 20:39 Dose: 50 mg Documented By: SEXK Labs 01/10/25 05:44 01/10/25 05:44 Labs: Laboratory Results - last 24 hr 01/07/25 01/10/25 06:17 05:44 MCV 101.4 H MCH 29.1 MCHC 28.7 L RDW 22.8 H Plt Count 40 L MPV 12.3 Immature Gran % (Auto) Cancelled Neut % (Auto) Cancelled Lymph % (Auto) Cancelled [place] % (Auto) Cancelled Eos % (Auto) Cancelled Baso % (Auto) Cancelled Lymph # (Auto) Cancelled [place] # (Auto) Cancelled Eos # (Auto) Cancelled Baso # (Auto) Cancelled Abs Immat Gran (auto) Cancelled Absolute Neuts (auto) Cancelled Absolute Nucleated RBC 2.270 H Nucleated RBC % (auto) 12.6 H Neutrophils % (Manual) 75 H 68 Band Neutrophils % 2 L Lymphocytes % (Manual) 3 L 15 L Atypical Lymphs % (Man) 0 2 Monocytes % (Manual) 7 5 Basophils % (Manual) 0 Metamyelocytes % 2 Myelocytes % 2 Blast Cells % (Manual) 9 8 Abs Neuts (Manual) 23.8 H 12.6 H Lymphocytes # (Manual) 0.9 L 2.7 Atyp Lymphs # (Manual) WET FINISHER 0.4 Monocytes # (Manual) 2.2 H 0.9 Basophils # (Manual) WET FINISHER Metamyelocytes # 0.6 Myelocytes # 0.6 Blast Cells # 2.8 1.4 Nucleated RBCs 9 H Platelet Estimate DECREASED Large Platelets PRESENT Giant Platelets PRESENT Plt Morphology Comment NOTED RBC Morphology NOTED Polychromasia 2+ (3-5) Macrocytosis 1+ (5-14) Ovalocytes 1+ (5-14) Stomatocytes 1+ (5-14) Acanthocytes (Spur) 1+ (0-2) Schistocytes 1+ (0-2) Anion Gap 10 L Estim Creat Clear Calc 51.7 Estimated GFR 55 Random Glucose 82 Calcium 7.6 L Microbiology Microbiology Results: Microbiology 01/06/25 16:15 Gram Stain - Final Leg - Left Routine Culture - Final Pseudomonas aeruginosa Escherichia coli Assessment and Plan (1) Acute hypernatremia: Status: Acute (2) Myelodysplastic syndrome: Status: Acute (3) Acute cholecystitis: Status: Acute (4) Symptomatic anemia: Status: Acute (5) Frailty: Status: Acute Plan A 79 years old male with PMH of MDS on transfusions, skin cancer RLE, HTN, anxiety, who is presenting from with abnormal blood work showing low H&H and decrease oral intake. Acute cholecystitis Not septic but Leukocytosis persisting seen in CT Abd\pelvis Continue Zosyn Surgery consult , cholecystectomy is recommended however as he was currently asymptomatic, surgery could be postponed until he was more medically stable. As an alternative, IR cholecystostomy could be performed if his symptoms seemed to worsen to check HIDA scan today before deciding the next step if negative will consider continue antibiotics treatment as outpatient and to follow with surgery OP Acute on chronic symptomatic anemia in MDS with excess Blasts Improved to 8.1 after 2nd unit PRBCs Elevated WBCs, ESR and CRP Blast 6-9% Oncology follow up; continue with [facility] dr Welch on Azacitidine and Venetoclax follow H&H Acute hypernatremia resolved. DC IVF follow BMP Acute kidney injury Cr improved 1.3 baseline I\O follow BMP Frailty PT Eval , will need SNF placement encourage PO intake + Ensure Chronic RLE wound 2/2 BCC no signs of infection wound Culture grew Sensitive Pseudomonas and E.Coli; covered with Zosyn (it is reported as left leg while wound on right leg?) HTN Amlodipine and Losartan Anxiety Clonazepam DVT PPx SCDs given low PLT The patient will need overnight hospital stay for Acute cholecystitis along with anemia requiring transfusion and HIDa scan with possible surgical intervention Quality Stroke Does the patient have a stroke diagnosis?: No VTE Prior VTE?: No VTE Risk Level:: Medical - moderate - high VTE Device Contraindication: N/A - Device Ordered VTE Drug Contraindication: Treatment Not Indicated
[2025-01-10] MEDS: Morphine Sulfate 2 MG/ML CARTRIDGE 4 MG IVPUSH (12:45)
[2025-01-10 13:20] VITALS: BP 113/58; PULSE 74; RESP 18; TEMP 36.7; O2SAT 94
--- NOTE | 2025-01-10 14:56 | PC.NURSE ---
foam dressing on coccyx for protection
[2025-01-10 15:10] VITALS: BP 111/54; PULSE 80; RESP 18; TEMP 37.1; O2SAT 93
[2025-01-10 19:14] VITALS: BP 122/63; PULSE 80; RESP 18; TEMP 36.9; O2SAT 93
[2025-01-10] MEDS: traZODone HCL 50 MG TABLET PO (20:57)
[2025-01-10 23:17] VITALS: BP 134/70; PULSE 78; RESP 16; TEMP 36.5; O2SAT 94
[2025-01-11] MEDS: Piperacillin Sodium/Tazobactam 3.375 GM in 0.9 % Sodium Chloride 50 ML IV ×2 (02:53→08:16)
[2025-01-11 02:56] VITALS: BP 143/66; PULSE 80; RESP 18; TEMP 36.3; O2SAT 96
[2025-01-11 05:51] LABS: PLT CLUMP 1; Red Blood Count 2.96 X10*6/uL (4.60-5.80)
[2025-01-11 05:53] LABS: Hematocrit 30.6 % (42.0-52.0); Hemoglobin 8.7 g/dl (14.0-18.0); Mean Corpuscular HGB Conc 28.4 g/dl (31.0-36.0); Mean Corpuscular Hemoglobin 29.4 pg (27.0-33.0); Mean Corpuscular Volume 103.4 fL (80.0-98.0); Red Cell Distribution Width 23.9 % (11.0-16.0)
[2025-01-11 05:54] LABS: NRBC Pct Auto 34.2 /100WBC (0.0-0.2); PLT ABN DIST 1; White Blood Count 19.9 X10*3/uL (4.8-10.8)
[2025-01-11] MEDS: Omeprazole 20 MG CAPSULE.DR PO (06:05)
[2025-01-11 06:11] LABS: Platelet Count 54 X10*3/uL (160-400)
[2025-01-11 06:12] LABS: Alanine Aminotransferase 28 U/L (0-40); Albumin Level 2.4 g/dL (3.5-5.0); Alkaline Phosphatase 79 U/L (39-117); Anion Gap 8 (12-20); Aspartate Amino Transferase 55 U/L (5-37); Bilirubin Direct 0.7 mg/dL (0.0-0.5); Bilirubin Total 1.9 mg/dL (0.0-1.0); Blood Urea Nitrogen 35 mg/dL (9-16); Calcium 7.8 mg/dL (8.4-10.2); Carbon Dioxide 22 mmol/L (22-29); Chloride 115 mmol/L (96-108); Creatinine Clr Calc Pharmacy 54.7; Estimated Glomerular Filt Rate 58; Glucose Random 80 mg/dL (60-115); Potassium 4.2 mmol/L (3.3-5.1); Sodium 141 mmol/L (135-145); Total Protein 5.3 g/dL (6.5-8.0)
[2025-01-11 06:17] LABS: Atypical Lymph Absolute Manual 0.4 x10*3/uL; Atypical Lymphs Percent Manual 2 % (0-6); Band Neutrophils Percent 1 % (3-5); Blast Percent 9 %; Blastocytes Absolute 1.8 X10*3/uL; Lymphocytes Percent Manual 10 % (20-40); Monocytes Absolute Manual 3.2 X10*3/uL (0.1-1.2); Monocytes Percent Manual 16 % (2-11); Neutrophils Absolute Manual 12.5 X10*3/uL (2.0-8.3); Neutrophils Percent Manual 62 % (45-73); Nucleated Red Blood Cells 29 /100WBC (0-0); RBC Morphology NOTED
[2025-01-11 06:18] LABS: Macrocytosis 1+ (5-14) /OIF; Ovalocytes 1+ (5-14) /OIF; Stomatocytes 1+ (5-14) /OIF; Tear Drop Cells 1+ (0-2) /OIF
[2025-01-11 06:19] LABS: Polychromasia 2+ (3-5) /OIF
[2025-01-11 06:20] LABS: Burr Cells 1+ (0-2) /OIF; Hypochromasia 1+ (5-14) /OIF
[2025-01-11 06:21] LABS: Giant Platelet PRESENT; Large Platelet PRESENT; Platelet Estimate DECREASED (NORMAL); Platelet Morphology Comment NORMAL
[2025-01-11 06:48] VITALS: BP 150/77; PULSE 85; RESP 17; TEMP 36.6; O2SAT 94
[2025-01-11] MEDS: Escitalopram Oxalate 10 MG TABLET PO (08:16)
[2025-01-11] MEDS: amLODIPine Besylate 5 MG TABLET PO (08:16)
[2025-01-11] MEDS: oxyCODONE HCl Immed Release 5 MG TABLET PO ×2 (08:16→12:51)
[2025-01-11] MEDS: ondansetron HCL 4 MG/2 ML VIAL IVPUSH (08:16)
[2025-01-11] MEDS: Simethicone 80 MG TAB.CHEW PO (08:16)
--- NOTE | 2025-01-11 09:56 | PM.DS ---
DS: Providers Provider Date of Service: 01/11/25 Date of admission: 01/06/25 16:36 Date of discharge: 01/11/25 Primary care physician: Chas Galarza MD Consults: 01/07/25 08:24 Consult to Infectious Diseases Routine Consulting [place] [facility] [place] [facility] Reason for consultation: Leukocytosis, chronic wound 01/07/25 08:30 Consult to Hematology / Oncology Routine Consulting [place] [facility] [place] Reason for consultation: MDS with leukocytosis , AML conversion ? 01/07/25 14:37 Consult to Wound Care Routine Reason for consultation: Wound - RLE Has provider been notified: Yes 01/07/25 14:54 Consult to General Surgery Routine Consulting Provider[place] [facility] [place] [facility] Reason for consultation: Acute cholecystitis DS: Diagnosis Discharge Diagnosis (1) Acute hypernatremia: Status: Acute (2) Myelodysplastic syndrome: Status: Acute (3) Acute cholecystitis: Status: Acute (4) Symptomatic anemia: Status: Acute (5) Frailty: Status: Acute DS: Summary Hospital Course Hospital Course: from initial hpi: 79 years old male with PMH of MDS on transfusions, skin cancer RLE, HTN, anxiety, who is presenting from with abnormal blood work showing low H&H and decrease oral intake. The patient has chronic RLE wound related to skin cancer followed at wound care center. He reports no significant changes in the wound over the last period of time. more granulation tissue is seen at bases. No fever, chills, chest pain, palpitations, SOB, nausea, vomiting, diarrhea or urinary symptoms. He reports feeling weaker, having no energy or appetite as he is not drinking enough. He requires transfusions almost at monthly basis right now, last transfusion was last month. In ED the patient was noted to have elevated WBCs and Cr to 1.9 from baseline of 0.8. elevated LFT. Admitted for further work up and a management. hospital course: Patient was admitted for acute on chronic symptomatic anemia in patient with myelodysplastic syndrome with excess blasts. Was transfused 2 units PRBC and hemoglobin improved. We will continue to follow up with Hematology as outpatient. There was initially concern for acute cholecystitis and patient was treated with IV Zosyn. HIDA scan was more consistent with biliary dyskinesia. Was seen by surgery recommended symptomatic management. For chronic right lower extremity wound with basal cell cancer and possible underlying cellulitis was treated with IV Zosyn will be transitioned to 3 more days of Cipro. Wound culture grew sensitive Pseudomonas and E coli. Labs during hospitalization did show episode of hypernatremia and hyponatremia however these appear to be in error. Patient mild acute kidney injury which returned to baseline. For frailty was seen by physical therapy who recommended short-term rehab placement to which patient will be discharged. He was expected require less than 30 days. For hypertension was continued on amlodipine and losartan. For anxiety continued on clonazepam. Patient is tolerating solids and overall feeling better. Time Attestation Discharge Coordination Time (in mins): 35 Quality: Safe Use of Opioids Does Pt have an Active Cancer Diagnosis on the Problem List?: Yes Opioid Measure Date for [facility] Report: 12/12/24 Opioid Measure Time for [facility] Report: 09:56 Quality: Stroke Does the patient have a stroke diagnosis?: No Physical Exam Vital Signs: Vital Signs: Last Vital Signs Temp 98 F 01/11/25 06:48 Pulse 85 01/11/25 06:48 Resp 17 01/11/25 06:48 BP 150/77 H 01/11/25 06:48 Pulse Ox 94 01/11/25 06:48 O2 Del Method Room Air 01/11/25 06:48 O2 Flow Rate 2.0 01/09/25 12:00 BMI result Body Mass Index 24.3 Const: Other: Constitutional : Awake, interactive, frail looking, not in distress Neck : Normal inspection, Supple Cardiovascular : RRR, no JVP, no lower extremity edema Respiratory : good bilateral air entry, no crackles, wheezes or rhonchi Gastrointestinal: soft, lax, Normal bowel sounds, no significant tenderness Skin : Warm, Dry, large open wound in RLE with granulation tissue, no warmth, drainage or erythema Neurological : Alert & oriented x3, No focal deficit DS: Data Data Completed and Pending Completed studies during hospitalization [Text1]: Procedures Replacement of Left Knee Joint with Synthetic Substitute, Uncemented, Open Approach (03/25/22) Labs on day of discharge: Laboratory Results - last 24 hr 01/11/25 05:06 WBC 19.9 H RBC 2.96 L Hgb 8.7 L Hct 30.6 L MCV 103.4 H MCH 29.4 MCHC 28.4 L RDW 23.9 H Plt Count 54 L D MPV 14.0 H Immature Gran % (Auto) Cancelled Neut % (Auto) Cancelled Lymph % (Auto) Cancelled Swain % (Auto) Cancelled Eos % (Auto) Cancelled Baso % (Auto) Cancelled Lymph # (Auto) Cancelled Swain # (Auto) Cancelled Eos # (Auto) Cancelled Baso # (Auto) Cancelled Abs Immat Gran (auto) Cancelled Absolute Neuts (auto) Cancelled Absolute Nucleated RBC 6.810 H Nucleated RBC % (auto) 34.2 H Neutrophils % (Manual) 62 Band Neutrophils % 1 L Lymphocytes % (Manual) 10 L Atypical Lymphs % (Man) 2 Monocytes % (Manual) 16 H Blast Cells % (Manual) 9 Abs Neuts (Manual) 12.5 H Lymphocytes # (Manual) 2.0 Atyp Lymphs # (Manual) 0.4 Monocytes # (Manual) 3.2 H Blast Cells # 1.8 Nucleated RBCs 29 H Platelet Estimate DECREASED Large Platelets PRESENT Giant Platelets PRESENT Plt Morphology Comment NORMAL RBC Morphology NOTED Polychromasia 2+ (3-5) Hypochromasia 1+ (5-14) Macrocytosis 1+ (5-14) Tear Drop Cells 1+ (0-2) Ovalocytes 1+ (5-14) Stomatocytes 1+ (5-14) Karen Cells 1+ (0-2) Sodium 141 Potassium 4.2 Chloride 115 H Carbon Dioxide 22 Anion Gap 8 L BUN 35 H Creatinine 1.20 Estim Creat Clear Calc 54.7 Estimated GFR 58 Random Glucose 80 Calcium 7.8 L Total Bilirubin 1.9 H Direct Bilirubin 0.7 H AST 55 H ALT 28 Alkaline Phosphatase 79 Total Protein 5.3 L Albumin 2.4 L Preliminary micro results at discharge 01/06/25 16:14 Blood Culture - Preliminary Blood - Venous No growth after 48 hours. 01/06/25 16:13 Blood Culture - Preliminary Blood - Venous No growth after 48 hours. Discharge Plan Discharge Anticipated Discharge Date/Time: 01/11/25 09:52 Patient Disposition: Xfer SNF Discharge Diagnosis: MDS anemia, cellultiis Referrals: Jarad Fischer [Outside] - 1 Week Harpreet Lacey MD [Physician] - 1 Week Chas Galarza MD [Primary Care Provider] - 1 Week Discharge Medications: New ciprofloxacin HCl 500 mg tablet 500 mg PO Q12H 3 Days Qty: 6 0RF Continued amlodipine 5 mg tablet 5 mg PO DAILY zinc acetate 50 mg (zinc) Capsule 50 mg PO BID trazodone 50 mg Tablet 50 mg PO BEDTIME naloxone 0.4 mg/mL Solution 0.4 mg SUBCUT Q2M PRN (Reason: Opiate Reversal) Rx Instructions: NTExceed 10 mg total dose/episode melatonin 3 mg Tablet 3 mg PO BEDTIME acetaminophen 500 mg Tablet 1,000 mg PO DAILY PRN (Reason: Pain) magnesium hydroxide [Milk of Magnesia] 400 mg/5 mL Suspension 30 ml PO BEDTIME PRN (Reason: Constipation) Rx Instructions: If no BM in 3 days bisacodyl [Dulcolax (bisacodyl)] 10 mg Suppository 10 mg PA DAILY PRN (Reason: Constipation) Rx Instructions: If no result from M.O.M omeprazole 20 mg Capsule,Delayed Release(Dr/Ec) 20 mg PO DAILY@0630 polyethylene glycol 3350 [Miralax] 17 gram/dose Powder 17 g PO DAILY simethicone 80 mg Tablet,Chewable 80 mg PO Q6H PRN (Reason: gas) escitalopram oxalate 10 mg Tablet 10 mg PO DAILY lactulose 10 gram/15 mL Solution 30 ml PO BID PRN (Reason: Constipation) Emetrol Chewable 230 mg Tablet,Chewable 460 mg PO Q15M PRN (Reason: Nausea And Vomiting) acetaminophen 325 mg tablet 650 mg PO Q4H PRN (Reason: Pain, Mild (Pain Scale 1-3)) oxycodone 5 mg tablet 5 mg PO Q4H PRN (Reason: Pain) Discontinued doxycycline hyclate 100 mg Tablet 100 mg PO BID Rx Instructions: end date 01/12/25 Discharge Orders: Discharge Order (Routine); Ordered 01/11/25 Ordered By: Iggy Peter Diet: Advance to usual diet Activity on Discharge: As tolerated Stand Alone Forms: Patient Portal Discharge page Print Language: [place] Care Plan Goals: Recovery Health Concerns: MDS, cellulitis, biliary dyskinesia Plan of Treatment: 3 more days of Cipro, follow up with General surgery, follow up with Hematology Assessment: See above
--- NOTE | 2025-01-11 10:29 | PC.NURSE ---
Report was given to facility
--- NOTE | 2025-01-11 11:02 | MHC.CM.PN ---
Per MD rounds patient medically cleared for dc back to [facility] @ [facility]. [place] has arranged transport for 1pm. Patient and RN aware. Per [facility], will likely transition to [facility].
[2025-01-11 12:33] VITALS: BP 123/59; PULSE 82; RESP 17; TEMP 36.6; O2SAT 95
== END 2025-01-11 13:31 | disposition skilled nursing facility (03) | DRG 812 ==
LOC: HO.ED 15:38 → HO.EDOVER 16:44 → HO.S3 01-09 07:51
PROVIDERS: Physician Assistant; Admitting Provider Student in an Organized Health Care Education/Training Program; Emergency Provider Emergency Medicine; PCP Internal Medicine; Visit Provider Internal Medicine
DX: D46.9 Myelodysplastic syndrome, unspecified (principal); L03.115 Cellulitis of right lower limb; N17.9 Acute kidney failure, unspecified; R64 Cachexia; B96.20 Unspecified Escherichia coli [E. coli] as the cause of diseases classified elsewhere; B96.5 Pseudomonas (aeruginosa) (mallei) (pseudomallei) as the cause of diseases classified elsewhere; Z68.24 Body mass index [BMI] 24.0-24.9, adult; K82.8 Other specified diseases of gallbladder; C44.712 Basal cell carcinoma of skin of right lower limb, including hip; K21.9 Gastro-esophageal reflux disease without esophagitis; E86.0 Dehydration; I10 Essential (primary) hypertension; F41.9 Anxiety disorder, unspecified; Z87.891 Personal history of nicotine dependence; Z79.899 Other long term (current) drug therapy
CPT/HCPCS: 36415; 71045; 74176; 78227; 80048; 80053; 80076; 81001; 83540; 83605; 83615; 83735; 84484; 85007; 85025; 85027; 85652; 86140; 86850; 86900; 86901; 86923; 87040; 87070; 87077; 87186; 87205; 93005; 97163; 97530; 99285; A9537; J0692; J0696; J1885; J2270; J2405; J2543; J3370; P9016

== ENCOUNTER → 2025-01-06 14:21 | Outpatient (BNV) | payer OTHER, SELFPAY | PROVIDERS: Emergency Provider Emergency Medicine; PCP Internal Medicine; Visit Provider Radiology Diagnostic Radiology | DX: J18.9 Pneumonia, unspecified organism (principal) | CPT/HCPCS: 71045 ==

== ENCOUNTER → 2025-01-06 16:00 | Outpatient (BNV) | payer OTHER, SELFPAY | PROVIDERS: Admitting Provider Student in an Organized Health Care Education/Training Program; Emergency Provider Emergency Medicine; PCP Internal Medicine; Visit Provider Internal Medicine Cardiovascular Disease | DX: I44.4 Left anterior fascicular block (principal) | CPT/HCPCS: 93010 ==

== ENCOUNTER 2025-01-06 16:36 | Outpatient (BNV) | payer OTHER, SELFPAY | END 2025-01-07 13:10 | PROVIDERS: Admitting Provider Student in an Organized Health Care Education/Training Program; Emergency Provider Emergency Medicine; PCP Internal Medicine; Visit Provider Radiology Diagnostic Radiology | DX: K80.20 Calculus of gallbladder without cholecystitis without obstruction (principal); J81.0 Acute pulmonary edema; K70.10 Alcoholic hepatitis without ascites; R16.1 Splenomegaly, not elsewhere classified | CPT/HCPCS: 74176 ==

== ENCOUNTER 2025-01-06 16:36 | Outpatient (BNV) | payer OTHER, SELFPAY | END 2025-01-10 11:00 | PROVIDERS: Admitting Provider Student in an Organized Health Care Education/Training Program; Emergency Provider Emergency Medicine; PCP Internal Medicine; Visit Provider Radiology Diagnostic Radiology | DX: K82.8 Other specified diseases of gallbladder (principal) | CPT/HCPCS: 78227 ==

== ENCOUNTER → 2025-01-06 16:36 | Outpatient (BNV) | payer OTHER, SELFPAY | PROVIDERS: Admitting Provider Student in an Organized Health Care Education/Training Program; Emergency Provider Emergency Medicine; PCP Internal Medicine; Visit Provider Surgery | DX: K81.0 Acute cholecystitis (principal) | CPT/HCPCS: 99222 ==

== ENCOUNTER → 2025-01-06 16:36 | Outpatient (BNV) | payer OTHER, SELFPAY | PROVIDERS: Admitting Provider Student in an Organized Health Care Education/Training Program; Emergency Provider Emergency Medicine; PCP Internal Medicine; Visit Provider Internal Medicine | DX: D46.9 Myelodysplastic syndrome, unspecified (principal) | CPT/HCPCS: 99222 ==

== ENCOUNTER → 2025-01-06 16:36 | Outpatient (BNV) | payer OTHER, SELFPAY | PROVIDERS: Admitting Provider Student in an Organized Health Care Education/Training Program; Emergency Provider Emergency Medicine; PCP Internal Medicine; Visit Provider Student in an Organized Health Care Education/Training Program | DX: K81.0 Acute cholecystitis (principal); D46.9 Myelodysplastic syndrome, unspecified; E87.0 Hyperosmolality and hypernatremia; R54 Age-related physical debility | CPT/HCPCS: 99223; 99232; 99233; 99239; 99499 ==